=== PATIENT | male | born 1950 | race Caucasian/White ===

== ENCOUNTER → 2020-04-09 | Day surgery (SDC) | payer MEDICARE ==
[2020-04-04 11:21] VITALS: BMI 23.6
--- NOTE | 2020-04-08 22:33 | P.HPIHPCON ---
History of Present Illness H&P Date: 04/09/20 Chief Complaint: bladder cancer Mr Danni is 69 yo male with hx of HG T1 bladder cancer S/P BCG at [facility]. He had cystoscopy done in the office which showed evidence of recurrence of large bladder tumor. I discussed with him and his guardian given the evidence of recurrence I recommend her undergoes TURBT. I discussed with him and his guardian he will need to undergo upper tract evaluation to with bilateral reterograde pyelogram. I discussed the risk of bleeding, infection and bladder perforation. They understood all risk and agreed to proceed with TURBT and Bilateral reterograde pyelogram Consent for Procedure: I have explained the operation/procedure to the patient, including the risks, benefits, side effects, alternative therapies (including not receiving the proposed treatment or service), the likelihood of the patient achieving his/her goals, and potential recuperation problems for the procedure/sedation/analgesia, as well as any blood products, if indicated. I also explained to the patient the risks, benefits and side effects of the alternatives, as well as the risks related to not receiving the proposed procedure, care, treatment, or services. Past Medical History Past Medical History: Asthma, Hypertension Additional Past Medical History / Comment(s): bladder mass, legally impaired person-legal Guardian stated "unsure if had bladder or colon CA 15-20 yrs ago-no known tx" History of Any Multi-Drug Resistant Organisms: None Reported Additional Past Surgical History / Comment(s): states "not sure wihat surgeries have been done but has had anesthesia without problems" Past Anesthesia/Blood Transfusion Reactions: No Reported Reaction Additional Past Anesthesia/Blood Transfusion Reaction / Comment(s): unknown hx blood transfusion,no known family hx of problems. Smoking Status: Former smoker - Past Family History Mother Family Medical History: No Reported History Medications and Allergies Home Medications Medication Instructions Recorded Confirmed Type Cyclobenzaprine HCl 5 mg PO TID PRN 04/04/20 04/04/20 History amLODIPine [Norvasc] 10 mg PO QAM 04/04/20 04/04/20 History lisinopriL 40 mg PO QAM 04/04/20 04/04/20 History Allergies Allergy/AdvReac Type Severity Reaction Status Date / Time Penicillins Allergy Unknown Verified 04/04/20 10:40 Surgical - Exam - General well developed, well nourished, no distress - Respiratory normal expansion, normal respiratory effort - Abdomen Abdomen: soft, non tender - Psychiatric oriented to time, oriented to person, oriented to place Assessment and Plan Assessment: 69 yo male with hx of HG T1 bladder cancer, with evidence of recurrence - OR for TURBT and bilateral RPG
[~2020-04-09] MED LIST: CIPROFLOXACIN/DEXTROSE PMX 400 MG in DEXTROSE/WATER 1 200ML.BAG IVPB ONE; DEXAMETHASONE SOD PHOSPHATE 10 MG/ML 1 ML VIAL IV ONE; LACTATED RINGERS 1,000 ML IV ONE; LACTATED RINGERS 1,000 ML IV SCH; LIDOCAINE 1% (10MG/ML) FOR IV START INTRADERMA ONE; ONDANSETRON 4 MG/2 ML VIAL IVP ONE; ONDANSETRON 4 MG/2 ML VIAL ONE
[2020-04-09 13:21] VITALS: BP 154/81; PULSE 86; RESP 17; TEMP 97
== END ==
LOC: OR 12:37 → EEVIPCON 13:00
PROVIDERS: ATTEND Urology
DX: C67.9 Malignant neoplasm of bladder, unspecified (principal); Z53.8 Procedure and treatment not carried out for other reasons; J45.909 Unspecified asthma, uncomplicated; I10 Essential (primary) hypertension; Z98.890 Other specified postprocedural states; Z87.891 Personal history of nicotine dependence; Z79.899 Other long term (current) drug therapy; Z88.0 Allergy status to penicillin
CPT/HCPCS: 84132; J1100; J2405

== ENCOUNTER → 2020-09-21 | Outpatient (CLI) | payer MEDICARE ==
--- NOTE | 2020-09-21 11:16 | CT ---
EXAMINATION TYPE: CT ChestAbdPelvis wo con DATE OF EXAM: 09/21/2020 COMPARISON: NONE HISTORY: Stomach pains, neoplasm of bladder Vogel. CT DLP: 406.4 mGycm. Automated Exposure Control for Dose Reduction was Utilized. TECHNIQUE: CT scan of the thorax, abdomen and pelvis is performed without or lower IV contrast. FINDINGS: LUNGS: Suspicious scattered small pulmonary nodules bilaterally. For reference roughly 6 nodules note d bilaterally axial image 42. For reference anterior 6 x 5 mm nodule noted. There are approximately 5 right sided small nodules right upper lung axial image 10. No pleural effusion or pneumothorax seen bilaterally. MEDIASTINUM: There are no greater than 1 cm hilar or mediastinal lymph nodes. No pericardial effusi on is seen. Ectatic ascending aorta measuring up to 3.6 cm diameter axial image 25. Severe three-ves davide coronary artery calcification, correlate clinically for additional cardiac risk factors. Abnormal adenopathy paraesophageal region distally, largest lymph node at diaphragmatic hiatus 1.2 x 1.2 cm s egment 45. OTHER: Bilateral subareolar gynecomastia. LIVER/GB: Heterogeneous hypodense masses right liver consistent with hepatic metastatic disease. For reference anterior right hepatic lesion on axial image 47 measures 6.2 cm long axis. For reference po sterior right hepatic lesion same image measures 5.4 cm long axis. Lesion left hepatic lobe inferiorl y lateral segment measures 3.8 cm long axis axial image 55. Somewhat contracted gallbladder with mild surrounding fluid, given patient's symptoms of epigastric pain further evaluation to acute cholecyst itis advised. PANCREAS: No significant abnormality is seen. SPLEEN: No significant abnormality is seen. ADRENALS: No significant abnormality is seen. KIDNEYS: [id number] right-sided hydronephrosis. Finding related to abnormal right sided bladd er wall mass or neoplasm blocking UVJ. Tumor extension to superior bladder wall noted. BOWEL: Normal-appearing appendix from cecum incidentally seen.. GENITAL ORGANS: No gross abnormality seen. LYMPH NODES: There is abnormal mass suspected adenopathy 3.2 x 2.3 cm gastrohepatic level axial image 52 anterior to the pancreas. Poor fat plane separation of the pancreaticoduodenal groove, small lymp h nodes at this level suspected. Abnormal right external iliac chain mass or adenopathy measuring 2.7 x 2.1 cm axial image 93. OSSEOUS STRUCTURES: Moderate to severe disc space narrowing with endplate sclerosis L5-S1 level. Grad e 1 anterolisthesis L4 on S1. Facet arthropathy lower lumbar levels. Moderate narrowing and spurring both hip joints. OTHER: Low dense 2.8 cm lesion anterior left thigh level could reflect bursal fluid related to left h ip joint extending anteriorly superiorly versus other etiology, correlate clinically. Large right scr otal fluid collection or hydrocele. Moderate calcified plaque of the infrarenal abdominal aorta exten ding into iliac branch vessels. IMPRESSION: 1. Mild to moderate inflammatory change surrounding the gallbladder, in patient with epigastric pain, acute cholecystitis needs to be considered. Follow-up advised based on clinical correlation. 2. Known bladder mass or neoplasm causing severe obstructive right-sided hydronephrosis. There is met astatic adenopathy in the lower thorax and abdomen along with right iliac chain region. Hepatic metas tatic disease is present. Nonspecific pulmonary nodules favor hematogenous pulmonary metastatic disea se spread. Ordering physician made aware of results via perfect serve at time of dictation.
== END ==
LOC: RADCTMAIN 10:05
PROVIDERS: ATTEND Urology
DX: C78.7 Secondary malignant neoplasm of liver and intrahepatic bile duct (principal); C77.8 Secondary and unspecified malignant neoplasm of lymph nodes of multiple regions; R91.8 Other nonspecific abnormal finding of lung field; C67.9 Malignant neoplasm of bladder, unspecified; N13.30 Unspecified hydronephrosis
CPT/HCPCS: 71250; 74176

== ENCOUNTER 2020-10-11 09:04 | Day surgery (SDC) | payer MEDICARE ==
[2020-10-11 09:47] VITALS: RESP 16; TEMP 97.8
[2020-10-11 09:50] LABS: Mean Platelet Volume 9.5; Platelet Count 361 k/uL (150-450)
[2020-10-11 09:58] LABS: Prothrombin Time 10.3 sec (9.0-12.0)
[2020-10-11] MEDS ORDERED: ALPRAZolam 0.25 MG TAB PO STA (09:59)
[2020-10-11] MEDS ORDERED: HYDROmorphone 0.5 MG/0.5 ML SYRINGE IVP STA (10:23)
--- NOTE | 2020-10-11 12:26 | CT ---
EXAMINATION TYPE: CT biopsy liver DATE OF EXAM: 10/11/2020 COMPARISON: NONE HISTORY: Left lobe liver mass CT DLP: 876mGycm The procedure was explained to the patient. The risks, complications, benefits, and alternatives wer e discussed and any questions were answered. Informed consent was obtained. Patient was placed supi ne on the CT table and prepped and draped in the usual sterile fashion. All elements of maximal barrier and sterile technique utilized. Utilizing CT guidance, an 18 gauge core biopsy needle access into the left lobe of the liver was ach ieved and a single 18 gauge core sample was obtained. The patient was stable throughout the procedur e and remained stable upon discharge. IMPRESSION: 1. Successful 18 gauge core biopsy of the liver.
--- NOTE | 2020-10-11 13:57 | US ---
EXAMINATION TYPE: US venous doppler duplex LE DATE OF EXAM: 10/11/2020 1:43 PM COMPARISON: NONE CLINICAL HISTORY: R22.42 Swelling Left lower limb.. LEft calf swelling per patient. SIDE PERFORMED: Bilateral TECHNIQUE: The lower extremity deep venous system is examined utilizing real time linear array sonog gucci with graded compression, doppler sonography and color-flow sonography. VESSELS IMAGED: Common Femoral Vein Deep Femoral Vein Greater Saphenous Vein * Femoral Vein Popliteal Vein Small Saphenous Vein * Proximal Calf Veins (* superficial vessels) Right Leg: Negative for DVT Left Leg: Negative for DVT IMPRESSION: Grayscale, color doppler, spectral doppler imaging performed of the deep veins of the lo wer extremities. There is normal flow, compressibility, vascular waveforms.
[2020-10-11 14:37] VITALS: BP 152/79
[2020-10-11] MEDS ORDERED: ACETAMINOPHEN TAB 325 MG TAB ONE (14:53)
[2020-10-11] MEDS ORDERED: ACETAMINOPHEN TAB 325 MG TAB PO STA (14:55)
[2020-10-11 15:41] VITALS: PULSE 74
== END 2020-10-11 16:47 | disposition home or self-care (01) ==
LOC: RADPROMAIN 09:04
PROVIDERS: ATTEND Internal Medicine Hematology & Oncology
DX: R16.0 Hepatomegaly, not elsewhere classified (principal); K76.89 Other specified diseases of liver; M79.89 Other specified soft tissue disorders; Z85.038 Personal history of other malignant neoplasm of large intestine; Z85.51 Personal history of malignant neoplasm of bladder
CPT/HCPCS: 85049; 85610; 88307; 36415; 93970; 47000; 77012; J1170

== ENCOUNTER → 2020-10-11 | Outpatient (CLI) | payer MEDICARE | END | disposition home or self-care (01) | LOC: RADUSWWP 12:47 | PROVIDERS: ATTEND Internal Medicine Hematology & Oncology | DX: Z53.9 Procedure and treatment not carried out, unspecified reason (principal) ==

== ENCOUNTER → 2021-01-10 | Outpatient (CLI) | payer MEDICARE ==
[2021-01-10 14:28] LABS: Albumin 3.7 g/dL (3.5-5.0); Calcium 9.3 mg/dL (8.4-10.2); Potassium 4.7 mmol/L (3.5-5.1); Total Bilirubin 0.2 mg/dL (0.2-1.3); Total Protein 7.2 g/dL (6.3-8.2)
--- NOTE | 2021-01-10 16:08 | CT ---
EXAMINATION TYPE: CT ChestAbdPelvis w con DATE OF EXAM: 01/10/2021 COMPARISON: 09/21/2020 HISTORY: 70-year-old male C6 7.2, bladder CA TECHNIQUE: Contiguous axial scanning of the chest, abdomen, and pelvis performed with IV Contrast, pa tient injected with 80 mL of Isovue 300. Delayed images through the kidneys were obtained. Coronal/sa gittal reconstructions performed. CT DLP: 562 mGycm Automated exposure control for dose reduction was used. FINDINGS: CHEST: Intramural median sternotomy and surgical clips along the anterior pericardium. Retained epicardial p acer lead. Substernal pericardial thickening measuring 4.7 x 2.9 cm AP postsurgical, new from . Heart normal size. Mildly aneurysmal aortic root at 4.0 cm. Conventional branching anatomy. Mild atherosclerotic arch ca lcifications. Prominent but nonenlarged 8 mm lower right paratracheal lymph node. Additional scattered small nonenl arged mediastinal lymph nodes are noted. Some lower right paraesophageal lymph nodes stable measuring up to 1.4 cm. Numerous bilateral pulmonary nodules are redemonstrated, the majority of which measure 5 mm or smalle r. No significant change is identified. No consolidation or pleural effusion. New volume loss with patchy atelectasis at the left base and no w asymmetric elevation left hemidiaphragm. ABDOMEN: Mild circumferential wall thickening distal esophagus. Correlate for any symptoms of esophagitis. Tin y hiatal hernia also noted. Redemonstrated breast 8 hypodense hepatic lesions. These also show decreasing in size, largest measur ing 4.1 cm anterior right liver lobe versus 6.2 cm, previously. Another mass in the mid liver measure s 3.3 cm versus 5.4 cm, previously. In the inferior left liver lobe measures 2.7 cm versus 3.6 cm, pr eviously. Gallbladder is collapsed. Adrenal glands, left kidney, spleen, and pancreas show no gross abnormal mobility. Mild right-sided pelvocaliectasis is unchanged. A couple nodules measuring up to 8 mm in the superior left perinephric fat are unchanged. Gastrohepatic ligament lymph nodes smaller at 1.3 cm versus 1.5 cm, previously. Abnormal encasing sof t tissue in the kong hepatis currently 3.9 cm versus up to 5.4 cm, previously. No dilated small bowel, free fluid, free air. Some left periaortic lymph nodes in the retroperitoneum measure up to 8 mm versus 1.1 cm, previously. Mild generalized anasarca change with hazy edema throughout the intra-abdominal fat and mild within t he subcutaneous adipose. Moderate atherosclerotic calcifications infrarenal abdominal aorta and iliac arteries. Oral contrast has progressed into the proximal sigmoid colon. There is moderate to large stool burden . No pericolonic inflammatory change. PELVIS: Irregular mural mass along the right lateral bladder wall and right bladder base redemonstrated. Thic kening measures up to 4.5 x 3.1 cm towards the dome of the bladder versus 5.0 x 3.6 cm, previously. L ateral wall thickening measures up to 1.2 cm versus about 1.9 cm, previously. Stable hypodense lesion involving the distal left iliopsoas muscle along the anterior aspect of the l eft hip measuring 2.6 cm, unchanged. Unclear if this represents an intramuscular metastasis or disten tion of the iliopsoas bursa. Right external iliac chain lymphadenopathy has resolved. Persistent large right-sided hydrocele. BONES: Degenerative changes right SI joint and left greater than right hips. Advanced hypertrophic facet art hropathy mid to lower lumbar spine with grade 1, nearly grade 2 anterolisthesis L4-L5. [facility] within th e lower thoracic spine. IMPRESSION: 1. PARTIAL TREATMENT RESPONSE. MULTIPLE HEPATIC METASTASES REMAIN BUT ALL SHOW DECREASE IN SIZE (LARG EST MEASURING 4.1 CM VERSUS 6.2 CM, PREVIOUSLY). 2. MULTIPLE BILATERAL PULMONARY NODULES MEASURING UP TO 5 MM ARE LARGELY UNCHANGED. 3. SOME LOWER RIGHT PARAESOPHAGEAL AND LEFT PARA-AORTIC RETROPERITONEAL LYMPH NODES ARE STABLE. HOWEV ER, CONGLOMERATE KONG HEPATIC LYMPHADENOPATHY SHOWS DECREASE IN SIZE (3.9 CM NOW VERSUS 5.4 CM, PREV IOUSLY). RIGHT EXTERNAL ILIAC CHAIN LYMPHADENOPATHY HAS RESOLVED. 4. RESIDUAL PROMINENT MURAL BASED MASS ALONG THE RIGHT LATERAL BLADDER WALL. OVERALL THICKNESS HAS DE CREASED. 5. INTERVAL MEDIAN STERNOTOMY. SUBSTERNAL ANTERIOR MEDIASTINAL THICKENING MAY BE POSTSURGICAL. METAST ATIC DISEASE IS CONSIDERED LESS LIKELY GIVEN THE OVERALL FAVORABLE RESPONSE MENTIONED ABOVE. 6. SIMILAR MILD RIGHT-SIDED HYDRONEPHROSIS. PERSISTENT LARGE RIGHT SCROTAL HYDROCELE. LOW-DENSITY LES ION WITHIN THE LOWER LEFT ILIOPSOAS MUSCLE IS STABLE AT 2.6 CM AND COULD REPRESENT A SOFT TISSUE DEPO SIT OR DISTENTION OF THE ILIOPSOAS BURSA.
== END | disposition home or self-care (01) ==
LOC: RADCTMAIN 12:40
PROVIDERS: ATTEND Internal Medicine Hematology & Oncology
DX: C67.2 Malignant neoplasm of lateral wall of bladder (principal); C78.7 Secondary malignant neoplasm of liver and intrahepatic bile duct; R91.8 Other nonspecific abnormal finding of lung field; N13.30 Unspecified hydronephrosis; N43.3 Hydrocele, unspecified
CPT/HCPCS: 80053; 71260; 74177; Q9967

== ENCOUNTER 2021-03-15 10:08 | Inpatient (IN) | payer MEDICARE ==
[2021-03-15] MEDS ORDERED: SODIUM CHLORIDE 0.9% 1,000 ML IV STA ×2 (10:24)
[2021-03-15 11:37] LABS: Anisocytosis Slight; HGB 9.3 gm/dL (13.0-17.5); MCH 29.1 pg (25.0-35.0); MCHC 33.1 g/dL (31.0-37.0); Mean Platelet Volume 9.6; RBC 3.18 m/uL (4.30-5.90); RDW 16.1 % (11.5-15.5)
[2021-03-15 11:39] LABS: Albumin 2.7 g/dL (3.5-5.0); Calcium 7.7 mg/dL (8.4-10.2); Magnesium 2.5 mg/dL (1.6-2.3); Potassium 3.6 mmol/L (3.5-5.1); Total Bilirubin 0.7 mg/dL (0.2-1.3); Total Protein 5.9 g/dL (6.3-8.2)
[2021-03-15 11:47] LABS: WBC 1.4 k/uL (3.8-10.6)
--- NOTE | 2021-03-15 12:04 | ED ---
General Adult HPI - General Chief complaint: Nausea/Vomiting/Diarrhea Stated complaint: Unable to eat, Diarrhea Time Seen by Provider: 03/15/21 10:14 Source: patient, RN notes reviewed, Caregiver Mode of arrival: wheelchair Limitations: no limitations - History of Present Illness Initial comments: This is a 70-year-old male presents emergency from with caregiver chief complaint of increasing weakness sent over from cancer Center. Patient is currently receiving infusions for bladder cancer with metastasis. Patient's having increasing symptoms including nausea, vomiting, diarrhea. Patient primarily diarrhea unable to eat much at this time. Patient complains abdominal pain which is been ongoing had a CAT scan recently. Patient has had no reported fever. Patient was sent over for probable admission for IV fluids. - Related Data Home Medications Medication Instructions Recorded Confirmed amLODIPine [Norvasc] 10 mg PO DAILY 04/04/20 03/15/21 Atorvastatin [Lipitor] 80 mg PO DAILY 02/01/21 03/15/21 Ferrous Sulfate [Iron] 325 mg PO DAILY 02/01/21 03/15/21 Pantoprazole [Protonix] 40 mg PO DAILY 02/01/21 03/15/21 Pvtvs-Q-Kzfvkngshbcxz [Beano] 150 unit PO TID PRN 03/15/21 03/15/21 Aspirin EC [Ecotrin Low Dose] 81 mg PO DAILY 03/15/21 03/15/21 Diphenox-Atrop 2.5-0.025 mg 2 tab PO QID 03/15/21 03/15/21 [Lomotil] Megestrol [Megace] 800 mg PO DAILY 03/15/21 03/15/21 Ondansetron HCl [Zofran] 4 mg PO Q6H PRN 03/15/21 03/15/21 Allergies Allergy/AdvReac Type Severity Reaction Status Date / Time Penicillins Allergy Unknown Verified 03/15/21 12:14 Review of Systems ROS Statement: Those systems with pertinent positive or pertinent negative responses have been documented in the HPI. ROS Other: All systems not noted in ROS Statement are negative. Past Medical History Past Medical History: Asthma, Cancer, Hypertension Additional Past Medical History / Comment(s): BLADDER CANCER. History of Any Multi-Drug Resistant Organisms: None Reported Additional Past Surgical History / Comment(s): states "not sure wihat surgeries have been done but has had anesthesia without problems" Past Anesthesia/Blood Transfusion Reactions: No Reported Reaction Additional Past Anesthesia/Blood Transfusion Reaction / Comment(s): unknown hx blood transfusion,no known family hx of problems. Past Psychological History: No Psychological Hx Reported Smoking Status: Former smoker Past Alcohol Use History: None Reported Past Drug Use History: None Reported - Past Family History Mother Family Medical History: No Reported History General Exam Limitations: no limitations General appearance: alert, in no apparent distress Head exam: Present: atraumatic, normocephalic, normal inspection Neck exam: Present: normal inspection. Absent: tenderness, meningismus, lymphad enopathy Respiratory exam: Present: normal lung sounds bilaterally. Absent: respiratory distress, wheezes, rales, rhonchi, stridor Cardiovascular Exam: Present: regular rate, normal rhythm, normal heart sounds. Absent: systolic murmur, diastolic murmur, rubs, gallop, clicks GI/Abdominal exam: Present: soft, tenderness, normal bowel sounds. Absent: distended, guarding, rebound, rigid Neurological exam: Present: alert Skin exam: Present: warm, dry, intact, normal color. Absent: rash Course Vital Signs 03/15/21 03/15/21 03/15/21 10:09 11:16 11:30 Temperature 97.8 F Pulse Rate 92 89 82 Respiratory 22 18 18 Rate Blood Pressure 91/61 130/64 130/64 O2 Sat by Pulse 100 95 95 Oximetry 03/15/21 12:00 Temperature Pulse Rate 87 Respiratory 18 Rate Blood Pressure 133/63 O2 Sat by Pulse 96 Oximetry Medical Decision Making - Medical Decision Making 70-year-old presented for dehydration. Patient found to be acutely dehydrated sodium 125 chloride 93 patient has metabolic acidosis. Patient does have thrombocytopenia which is new. Case discussed with some physician to address the eat. Patient be admitted with consult to oncology. - Lab Data Result diagrams: 03/15/21 10:57 03/15/21 10:57 Lab Results 03/15/21 03/15/21 03/15/21 Range/Units 10:57 10:57 10:57 WBC 1.4 L* (3.8-10.6) k/uL RBC 3.18 L (4.30-5.90) m/uL Hgb 9.3 L (13.0-17.5) gm/dL Hct 28.0 L (39.0-53.0) % MCV 88.0 (80.0-100.0) fL MCH 29.1 (25.0-35.0) pg MCHC 33.1 (31.0-37.0) g/dL RDW 16.1 H (11.5-15.5) % Plt Count 72 L D (150-450) k/uL MPV 9.6 Neutrophils % (Manual) 53 % Band Neuts % (Manual) 4 % Lymphocytes % (Manual) 29 % Monocytes % (Manual) 14 % Neutrophils # (Manual) 0.70 L (1.3-7.7) k/uL Lymphocytes # (Manual) 0.41 L (1.0-4.8) k/uL Monocytes # (Manual) 0.20 (0-1.0) k/uL Nucleated RBCs 0 (0-0) /100 WBC Manual Slide Review Performed Anisocytosis Slight Sodium 125 L (137-145) mmol/L Potassium 3.6 (3.5-5.1) mmol/L Chloride 93 L (98-107) mmol/L Carbon Dioxide 21 L (22-30) mmol/L Anion Gap 11 mmol/L BUN 42 H (9-20) mg/dL Creatinine 1.43 H (0.66-1.25) mg/dL Est GFR (CKD-EPI)AfAm 57 (>60 ml/min/1.73 sqM) Est GFR (CKD-EPI)NonAf 49 (>60 ml/min/1.73 sqM) Glucose 83 (74-99) mg/dL Plasma Lactic Acid Schuyler 1.7 (0.7-2.0) mmol/L Calcium 7.7 L (8.4-10.2) mg/dL Magnesium 2.5 H (1.6-2.3) mg/dL Total Bilirubin 0.7 (0.2-1.3) mg/dL AST 84 H (17-59) U/L ALT 46 (4-49) U/L Alkaline Phosphatase 119 (38-126) U/L Troponin I (0.000-0.034) ng/mL Total Protein 5.9 L (6.3-8.2) g/dL Albumin 2.7 L (3.5-5.0) g/dL Amylase 81 (30-110) U/L Lipase 138 (23-300) U/L 03/15/21 Range/Units 10:57 WBC (3.8-10.6) k/uL RBC (4.30-5.90) m/uL Hgb (13.0-17.5) gm/dL Hct (39.0-53.0) % MCV (80.0-100.0) fL MCH (25.0-35.0) pg MCHC (31.0-37.0) g/dL RDW (11.5-15.5) % Plt Count (150-450) k/uL MPV Neutrophils % (Manual) % Band Neuts % (Manual) % Lymphocytes % (Manual) % Monocytes % (Manual) % Neutrophils # (Manual) (1.3-7.7) k/uL Lymphocytes # (Manual) (1.0-4.8) k/uL Monocytes # (Manual) (0-1.0) k/uL Nucleated RBCs (0-0) /100 WBC Manual Slide Review Anisocytosis Sodium (137-145) mmol/L Potassium (3.5-5.1) mmol/L Chloride (98-107) mmol/L Carbon Dioxide (22-30) mmol/L Anion Gap mmol/L BUN (9-20) mg/dL Creatinine (0.66-1.25) mg/dL Est GFR (CKD-EPI)AfAm (>60 ml/min/1.73 sqM) Est GFR (CKD-EPI)NonAf (>60 ml/min/1.73 sqM) Glucose (74-99) mg/dL Plasma Lactic Acid Schuyler (0.7-2.0) mmol/L Calcium (8.4-10.2) mg/dL Magnesium (1.6-2.3) mg/dL Total Bilirubin (0.2-1.3) mg/dL AST (17-59) U/L ALT (4-49) U/L Alkaline Phosphatase (38-126) U/L Troponin I 0.014 (0.000-0.034) ng/mL Total Protein (6.3-8.2) g/dL Albumin (3.5-5.0) g/dL Amylase (30-110) U/L Lipase (23-300) U/L Disposition Clinical Impression: Pancytopenia, Dehydration, Metastasis from bladder cancer, Metabolic acidosis Disposition: ADMITTED IP TO THIS [facility] Condition: Fair Referrals: None,Stated [Primary Care Provider] - 1-2 days
[2021-03-15 12:22] LABS: Band Neutrophils % 4 %; Lymphocytes # (M) 0.41 k/uL (1.0-4.8); Neutrophils % (M) 53 %; Nucleated Red Blood Cells 0 /100 WBC (0-0); Total Cells Counted 100
[2021-03-15 12:23] LABS: Platelet Count 72 k/uL (150-450)
[2021-03-15] MEDS ORDERED: ONDANSETRON 4 MG/2 ML VIAL IVP PRN ×2 (13:10→13:21)
[2021-03-15] MEDS ORDERED: NALOXONE 0.4 MG/ML 1 ML VIAL IV PRN (13:10)
--- NOTE | 2021-03-15 13:26 | P.HPIM ---
History of Present Illness H&P Date: 03/15/21 This is a 70-year-old mentally impaired male with known history of metastatic bladder cancer that resulted to the emergency room sent from the cancer center secondary to persistent diarrhea and vomiting attributed to chemotherapy. Patient is unable to provide any significant history and his caregiver was not at bedside at the time of my evaluation in the emergency room. History was obtained by chart review and ER staff report. Apparently patient has been having persistent diarrhea with intermittent vomiting and he was at the cancer Center today scheduled for chemotherapy and was sent to the ER for further management of his dehydration. Patient is awake and alert. He does not have any complaints. He told me that he was having diarrhea and vomited once earlier. He denies any abdominal pain otherwise. No fevers or chills. Review of Systems Review of system: 14 points review of systems were obtained and were negative except to what were mentioned in the HPI. Past Medical History Past Medical History: Asthma, Cancer, Hypertension Additional Past Medical History / Comment(s): BLADDER CANCER. History of Any Multi-Drug Resistant Organisms: None Reported Additional Past Surgical History / Comment(s): states "not sure wihat surgeries have been done but has had anesthesia without problems" Past Anesthesia/Blood Transfusion Reactions: No Reported Reaction Additional Past Anesthesia/Blood Transfusion Reaction / Comment(s): unknown hx blood transfusion,no known family hx of problems. Past Psychological History: No Psychological Hx Reported Smoking Status: Former smoker Past Alcohol Use History: None Reported Past Drug Use History: None Reported - Past Family History Mother Family Medical History: No Reported History Medications and Allergies Home Medications Medication Instructions Recorded Confirmed Type amLODIPine [Norvasc] 10 mg PO DAILY 04/04/20 03/15/21 History Atorvastatin [Lipitor] 80 mg PO DAILY 02/01/21 03/15/21 History Ferrous Sulfate [Iron] 325 mg PO DAILY 02/01/21 03/15/21 History Pantoprazole [Protonix] 40 mg PO DAILY 02/01/21 03/15/21 History Lijmp-R-Znqduusdwtkks [Beano] 150 unit PO TID PRN 03/15/21 03/15/21 History Aspirin EC [Ecotrin Low Dose] 81 mg PO DAILY 03/15/21 03/15/21 History Diphenox-Atrop 2.5-0.025 mg 2 tab PO QID 03/15/21 03/15/21 History [Lomotil] Megestrol [Megace] 800 mg PO DAILY 03/15/21 03/15/21 History Ondansetron HCl [Zofran] 4 mg PO Q6H PRN 03/15/21 03/15/21 History Allergies Allergy/AdvReac Type Severity Reaction Status Date / Time Penicillins Allergy Unknown Verified 03/15/21 12:14 Physical Exam Vitals: Vital Signs Temp Pulse Resp BP Pulse Ox 03/15/21 12:00 87 18 133/63 96 03/15/21 11:30 82 18 130/64 95 03/15/21 11:16 89 18 130/64 95 03/15/21 10:09 97.8 F 92 22 91/61 100 Intake and Output 03/14/21 03/15/21 03/15/21 22:59 06:59 14:59 Other: Weight 45.359 kg General: The patient is awake and alert, in no distress Eye: there is normal conjunctiva bilaterally. Neck: The neck is supple, there is no JVD. Cardiovascular: Normal S1-S2, no S3-S4, no murmurs. Respiratory: Lungs clear to auscultation bilaterally Gastrointestinal: Abdomen is soft, nontender Musculoskeletal: There is no pedal edema. Neurological:. Speech is normal. Skin: Skin is warm and dry Results CBC & Chem 7: 03/15/21 10:57 03/15/21 10:57 Labs: Abnormal Lab Results - Last 24 Hours (Table) 03/15/21 03/15/21 Range/Units 10:57 10:57 WBC 1.4 L* (3.8-10.6) k/uL RBC 3.18 L (4.30-5.90) m/uL Hgb 9.3 L (13.0-17.5) gm/dL Hct 28.0 L (39.0-53.0) % RDW 16.1 H (11.5-15.5) % Plt Count 72 L D (150-450) k/uL Neutrophils # (Manual) 0.70 L (1.3-7.7) k/uL Lymphocytes # (Manual) 0.41 L (1.0-4.8) k/uL Sodium 125 L (137-145) mmol/L Chloride 93 L (98-107) mmol/L Carbon Dioxide 21 L (22-30) mmol/L BUN 42 H (9-20) mg/dL Creatinine 1.43 H (0.66-1.25) mg/dL Calcium 7.7 L (8.4-10.2) mg/dL Magnesium 2.5 H (1.6-2.3) mg/dL AST 84 H (17-59) U/L Total Protein 5.9 L (6.3-8.2) g/dL Albumin 2.7 L (3.5-5.0) g/dL Assessment and Plan Assessment: 1. Chemo-induced diarrhea and vomiting 2. Hypovolemic hyponatremia 3. Dehydration 4. Metastatic bladder cancer with metastases to the liver and lungs on chemotherapy 5. Chemo-induced pancytopenia 6. CODE STATUS: Unable to clarify CODE STATUS with patient we will assume full code until further clarification Today, I reviewed his medication list and lab work results. Started on IV fluid hydration with normal saline at 139 per hour. We will avoid sodium ove rcorrection. Check BMP at 1900 and in the morning. Oncology consulted as well. We will continue supportive care otherwise. In control and anti-emetic as needed.
[2021-03-15] MEDS: SODIUM CHLORIDE 0.9% 1,000 ML IV SCH (13:47)
[2021-03-15 14:33] LABS: Appearance,Urine Cloudy (Clear); Bilirubin,Urine Negative (Negative); Blood,Urine Small (Negative); Color,Urine Yellow; Glucose,Urine (UA) Negative (Negative); Ketones,Urine Negative (Negative); Leukocyte Esterase,Urine Negative (Negative); Nitrite,Urine Negative (Negative); PH, Urine 5.5 (5.0-8.0); Protein,Urine 1+ (Negative); RBC,Urine 12 /hpf (0-5); Specific Gravity,Urine 1.013 (1.001-1.035); Squamous Epithelial Cell,Urine <1 /hpf (0-4); Urobilinogen,Urine <2.0 mg/dL (<2.0); WBC,Urine 3 /hpf (0-5)
[2021-03-15] MEDS ORDERED: ALPHA D GALACTOSIDASE 300 UNIT PO PRN (16:50)
[2021-03-15] MEDS: DIPHENOX-ATROP 2.5-0.025 MG 1 EACH TAB PO SCH ×2 (19:09→21:56)
[2021-03-15 19:37] LABS: Calcium 7.7 mg/dL (8.4-10.2); Potassium 3.4 mmol/L (3.5-5.1)
[2021-03-15] MEDS: ACETAMINOPHEN TAB 325 MG TAB PO PRN (21:56)
--- NOTE | 2021-03-15 23:57 | P.CONS ---
History of Present Illness - Reason for Consult Consult date: 03/15/21 Bladder Cancer Requesting physician: Francis Sun - History of Present Illness Antwon presented with Hematuria, Cytoscopy and biopsy by Dr Bragg in Apr 2020 revealed High-grade Urothelial carcinoma with muscle invasion. Staging CT Scan ordered, but not done till September 2020, since then he developed progressive weakness, anorexia , abdominal pain & weight loss. CT Scan unfortunatelly revealed pelvic & abdominal lymphadenopathy, lung & liver metastatic disease. He is very weak and lost 25-30 lbs in last 2-3 months, has epigastric abdominal pain, eats ceral in AM but has nausea with any form of meat. He smoked 1 PPD X 20 years, quit 15 years ago, denies ETOH. Stated having severe pain in am in both calfs when standing/walking 10/30/20: C/O abdominal pain, anorexia & weight loss. Completed Cycle # 1 of carboplatinum+Gemzar > well tolerated, no N/V. 01/10/21: Had NSTEMI > Cardiogenic shock > CABG ([place]) Cardiac rehab > recovered well. Denies any chest pain, SOB or abdominal pain. 02/01/21: Tolerating Chemotherapy well (3 cycles given so far). 02/28/21-Pt here with guardian for chemo f/u, per proxy lacks appetite, lost wt, has the "runs", cont getting weaker. Pt states his stomach "stout", has lots of "gas". Pt has been out of several meds as he has not establised with a PCP yet- PPI is one of them. No other c/o At last visit [employer] Reviewed med list with guardian. Encouraged him to get pt back on PPI (pt c/o bruning in stomach and gas) and use the beano. Use the lomotil f or diarrhea sparingly as treatment of the aformentioned may help pt eat better and help diarrhea. Prescribed 30 day supple of several meds pt is needing but won't be able to get until he has a PCP. He has completed 5 cycles of carboplatin and gemsar. He has not received growth factor to this date. He presents with WBC 1.4, SOdium level 125. He presents to ER with diarrhea and nausea and vomiting. Afebrile. Guardian speaks for patient who is unable to communicate baseline Review of Systems ROS unobtainable: due to mental status Past Medical History Past Medical History: Asthma, Cancer, Hypertension Additional Past Medical History / Comment(s): Patient has Alcohol Syndrome with cognitive impairment. Bladder Cancer with known liver and lung mets. History of Any Multi-Drug Resistant Organisms: None Reported Past Surgical History: No Surgical Hx Reported Additional Past Surgical History / Comment(s): . Past Anesthesia/Blood Transfusion Reactions: No Reported Reaction Additional Past Anesthesia/Blood Transfusion Reaction / Comm: No Known History of blood transfusions. Past Psychological History: No Psychological Hx Reported Additional Psychological History / Comment(s): Cognitive Impairment Smoking Status: Former smoker Past Alcohol Use History: None Reported Additional Past Alcohol Use History / Comment(s): quit smoking 20 years ago per caregiver. Past Drug Use History: None Reported - Past Family History Mother Family Medical History: No Reported History Additional Family Medical History / Comment(s): Alcoholic Father Family Medical History: Myocardial Infarction (MA) Medications and Allergies Home Medications Medication Instructions Recorded Confirmed Type amLODIPine [Norvasc] 10 mg PO DAILY 04/04/20 03/15/21 History Atorvastatin [Lipitor] 80 mg PO DAILY 02/01/21 03/15/21 History Ferrous Sulfate [Iron] 325 mg PO DAILY 02/01/21 03/15/21 History Pantoprazole [Protonix] 40 mg PO DAILY 02/01/21 03/15/21 History Phzju-F-Apvucrxitvlie [Beano] 150 unit PO TID PRN 03/15/21 03/15/21 History Aspirin EC [Ecotrin Low Dose] 81 mg PO DAILY 03/15/21 03/15/21 History Diphenox-Atrop 2.5-0.025 mg 2 tab PO QID 03/15/21 03/15/21 History [Lomotil] Megestrol [Megace] 800 mg PO DAILY 03/15/21 03/15/21 History Ondansetron HCl [Zofran] 4 mg PO Q6H PRN 03/15/21 03/15/21 History Allergies Allergy/AdvReac Type Severity Reaction Status Date / Time Penicillins Allergy Unknown Verified 03/15/21 12:14 Physical Exam Vitals: Vital Signs Temp Pulse Pulse Resp BP BP Pulse Ox 03/15/21 20:22 98.4 F 88 16 112/55 97 03/15/21 14:45 97.5 F L 85 17 120/66 95 03/15/21 13:55 97.8 F 82 18 130/78 92 L 03/15/21 12:00 87 18 133/63 96 03/15/21 11:30 82 18 130/64 95 03/15/21 11:16 89 18 130/64 95 03/15/21 10:09 97.8 F 92 22 91/61 100 Intake and Output 03/15/21 03/15/21 03/16/21 14:59 22:59 06:59 Other: Voiding Method Toilet Diaper Incontinent # Bowel Movements 1 Weight 45.359 kg - Constitutional General appearance: no acute distress - EENT Eyes: poor dentition ENT: NA/AT - Respiratory Respiratory: bilateral: diminished - Cardiovascular Rhythm: regularly irregular leg Peripheral Edema: bilateral: 1+ - Gastrointestinal General gastrointestinal: soft - Integumentary Integumentary: no pale - Neurologic unable to access - Musculoskeletal Musculoskeletal: generalized weakness - Psychiatric baseline Results CBC & Chem 7: 03/15/21 10:57 03/15/21 19:16 Labs: Abnormal Lab Results - Last 24 Hours (Table) 03/15/21 03/15/21 03/15/21 Range/Units 10:57 10:57 10:57 WBC 1.4 L* (3.8-10.6) k/uL RBC 3.18 L (4.30-5.90) m/uL Hgb 9.3 L (13.0-17.5) gm/dL Hct 28.0 L (39.0-53.0) % RDW 16.1 H (11.5-15.5) % Plt Count 72 L D (150-450) k/uL Neutrophils # (Manual) 0.70 L (1.3-7.7) k/uL Lymphocytes # (Manual) 0.41 L (1.0-4.8) k/uL Sodium 125 L (137-145) mmol/L Potassium (3.5-5.1) mmol/L Chloride 93 L (98-107) mmol/L Carbon Dioxide 21 L (22-30) mmol/L BUN 42 H (9-20) mg/dL Creatinine 1.43 H (0.66-1.25) mg/dL Calcium 7.7 L (8.4-10.2) mg/dL Magnesium 2.5 H (1.6-2.3) mg/dL AST 84 H (17-59) U/L Total Protein 5.9 L (6.3-8.2) g/dL Albumin 2.7 L (3.5-5.0) g/dL Urine Protein 1+ H (Negative) Urine Blood Small H (Negative) Urine RBC 12 H (0-5) /hpf 03/15/21 Range/Units 19:16 WBC (3.8-10.6) k/uL RBC (4.30-5.90) m/uL Hgb (13.0-17.5) gm/dL Hct (39.0-53.0) % RDW (11.5-15.5) % Plt Count (150-450) k/uL Neutrophils # (Manual) (1.3-7.7) k/uL Lymphocytes # (Manual) (1.0-4.8) k/uL Sodium 126 L (137-145) mmol/L Potassium 3.4 L (3.5-5.1) mmol/L Chloride 97 L (98-107) mmol/L Carbon Dioxide 19 L (22-30) mmol/L BUN 36 H (9-20) mg/dL Creatinine (0.66-1.25) mg/dL Calcium 7.7 L (8.4-10.2) mg/dL Magnesium (1.6-2.3) mg/dL AST (17-59) U/L Total Protein (6.3-8.2) g/dL Albumin (3.5-5.0) g/dL Urine Protein (Negative) Urine Blood (Negative) Urine RBC (0-5) /hpf Assessment and Plan (1) Diarrhea Current Visit: Yes Status: Acute Code(s): R19.7 - DIARRHEA, UNSPECIFIED SNOMED Code(s): 85269849 (2) Dehydration Current Visit: Yes Status: Acute Code(s): E86.0 - DEHYDRATION SNOMED Code(s): 45244294 (3) Metastasis from bladder cancer Current Visit: Yes Status: Acute Code(s): C79.9 - SECONDARY MALIGNANT NEOPLASM OF UNSPECIFIED SITE; C67.9 - MALIGNANT NEOPLASM OF BLADDER, UNSPECIFIED SNOMED Code(s): 494451281 (4) Pancytopenia Current Visit: Yes Status: Acute Code(s): D61.818 - OTHER PANCYTOPENIA SNO MED Code(s): 434588980 Plan: Obtain stool studies and utilize questran until infectious colitis is ruled out CBC in Am, if WBC still low may add growth factor. Supportive and symptom management Pancytopenia secondary to chemotherapy. Physician attest: I have completed the full history and physical and agree with above dictation, dictated as a ascribe
[2021-03-16] MEDS: SODIUM CHLORIDE 0.9% 1,000 ML IV SCH ×2 (02:55→16:45)
[2021-03-16 06:11] LABS: HCT 24.1 % (39.0-53.0); MCH 28.8 pg (25.0-35.0); MCHC 32.5 g/dL (31.0-37.0); MCV 88.5 fL (80.0-100.0); Mean Platelet Volume 10.4; RBC 2.72 m/uL (4.30-5.90); RDW 15.9 % (11.5-15.5)
[2021-03-16 06:23] LABS: HGB 7.8 gm/dL (13.0-17.5); Platelet Count 33 k/uL (150-450); WBC 0.8 k/uL (3.8-10.6)
[2021-03-16 06:37] LABS: ALT 38 U/L (4-49); AST 64 U/L (17-59); African American GFR (CKD) 76 (>60 ml/min/1.73 sqM); Albumin/Globulin Ratio 0.7; Alkaline Phosphatase 95 U/L (38-126); Anion Gap 7 mmol/L; Blood Urea Nitrogen 31 mg/dL (9-20); Calcium 7.2 mg/dL (8.4-10.2); Carbon Dioxide 19 mmol/L (22-30); Chloride 102 mmol/L (98-107); Globulin 2.8 g/dL; Glucose 70 mg/dL (74-99); Magnesium 2.2 mg/dL (1.6-2.3); Non-African American GFR(CKD) 65 (>60 ml/min/1.73 sqM); Potassium 2.9 mmol/L (3.5-5.1); Sodium 128 mmol/L (137-145); Total Bilirubin 0.5 mg/dL (0.2-1.3); Total Protein 4.8 g/dL (6.3-8.2)
[2021-03-16] MEDS ORDERED: ASPIRIN 81 MG PO SCH (09:00)
[2021-03-16] MEDS: ATORVASTATIN 80 MG TAB PO SCH (09:57)
[2021-03-16] MEDS: PANTOPRAZOLE 40 MG TABLET PO SCH (09:57)
[2021-03-16] MEDS: DIPHENOX-ATROP 2.5-0.025 MG 1 EACH TAB PO SCH ×4 (09:57→21:08)
[2021-03-16] MEDS: FERROUS SULFATE 325 MG TAB PO SCH (09:57)
[2021-03-16] MEDS: CHOLESTYRAMINE (WITH SUGAR) 4 GM PACKET PO SCH ×2 (09:57→17:38)
[2021-03-16] MEDS: MEGESTROL 400 MG/10 ML CUP PO SCH (09:57)
[2021-03-16 11:39] VITALS: BMI 18.8
--- NOTE | 2021-03-16 12:00 | P.PN ---
Subjective Progress Note Date: 03/16/21 Principal diagnosis: dehydration, urothelial carcinoma, on chemo In f/u today pt states he is hungry, epigastric discomfort is mild, still having diarrhea. Denies any other pain, SOB. Objective - Vital Signs Vital signs: Vital Signs Temp 98.0 F 03/16/21 04:33 Pulse 88 03/16/21 08:40 Resp 18 03/16/21 08:40 BP 109/69 03/16/21 04:33 Pulse Ox 94 L 03/16/21 04:33 Intake & Output 03/15/21 03/16/21 03/16/21 18:59 06:59 18:59 Intake Total 1500 Balance 1500 Weight 45.359 kg 45.359 kg Intake: Intake, IV Titration 900 Amount Sodium Chloride 0.9% 1, 900 000 ml @ 75 mls/hr IV . [id number] [facility] Rx#:[id number] Oral 600 Other: Voiding Method Toilet Toilet Diaper Diaper Diaper Incontinent Incontinent Incontinent # Voids 2 # Bowel Movements 1 4 - Constitutional General appearance: Present: cooperative, no acute distress, thin - EENT Eyes: Present: anicteric sclerae, EOMI ENT: Present: hearing grossly normal - Respiratory Respiratory: bilateral: CTA, diminished - Cardiovascular Rhythm: regular Heart sounds: normal: S1, S2 Abnormal Heart Sounds: Absent: systolic murmur, diastolic murmur, rub, S3 Gallop, S4 Gallop, click, other - Peripheral edema leg Peripheral Edema: bilateral: None - Gastrointestinal General gastrointestinal: Present: normal bowel sounds, soft - Musculoskeletal Musculoskeletal: Present: generalized weakness, strength equal bilaterally - Psychiatric Psychiatric Comment(s): Oriented to self and place - Labs CBC & Chem 7: 03/16/21 05:37 03/16/21 05:37 Labs: Abnormal Lab Results - Last 24 Hours (Table) 03/15/21 03/15/21 03/15/21 Range/Units 10:57 10:57 19:16 WBC (3.8-10.6) k/uL RBC (4.30-5.90) m/uL Hgb (13.0-17.5) gm/dL Hct (39.0-53.0) % RDW (11.5-15.5) % Plt Count 72 L D (150-450) k/uL Neutrophils # (Manual) 0.70 L (1.3-7.7) k/uL Lymphocytes # (Manual) 0.41 L (1.0-4.8) k/uL Sodium 126 L (137-145) mmol/L Potassium 3.4 L (3.5-5.1) mmol/L Chloride 97 L (98-107) mmol/L Carbon Dioxide 19 L (22-30) mmol/L BUN 36 H (9-20) mg/dL Glucose (74-99) mg/dL Osmolality (280-301) mosm/kg Calcium 7.7 L (8.4-10.2) mg/dL AST (17-59) U/L Total Protein (6.3-8.2) g/dL Albumin (3.5-5.0) g/dL Urine Protein 1+ H (Negative) Urine Blood Small H (Negative) Urine RBC 12 H (0-5) /hpf 03/16/21 03/16/21 Range/Units 05:37 05:37 WBC 0.8 L* (3.8-10.6) k/uL RBC 2.72 L (4.30-5.90) m/uL Hgb 7.8 L D (13.0-17.5) gm/dL Hct 24.1 L (39.0-53.0) % RDW 15.9 H (11.5-15.5) % Plt Count 33 L D (150-450) k/uL Neutrophils # (Manual) (1.3-7.7) k/uL Lymphocytes # (Manual) (1.0-4.8) k/uL Sodium 128 L (137-145) mmol/L Potassium 2.9 L (3.5-5.1) mmol/L Chloride (98-107) mmol/L Carbon Dioxide 19 L (22-30) mmol/L BUN 31 H (9-20) mg/dL Glucose 70 L (74-99) mg/dL Osmolality 269 L (280-301) mosm/kg Calcium 7.2 L (8.4-10.2) mg/dL AST 64 H (17-59) U/L Total Protein 4.8 L (6.3-8.2) g/dL Albumin 2.0 L (3.5-5.0) g/dL Urine Protein (Negative) Urine Blood (Negative) Urine RBC (0-5) /hpf Assessment and Plan (1) Dehydration Narrative/Plan: IV hydration Na+, BUN/Cr improving Current Visit: Yes Status: Acute Priority: High Code(s): E86.0 - DEHYDRATION SNOMED Code(s): 74482005 (2) Antineoplastic chemotherapy induced pancytopenia Narrative/Plan: GCSF started Transfuse for Hgb<7 unless symptomatic Transfuse for plt <10,000 unless symptomatic. No asa,anticoagulation, NSAIDs until plt > 50,000 CBC daily Current Visit: Yes Status: Acute Priority: High Code(s): D61.810 - ANTINEOPLASTIC CHEMOTHERAPY INDUCED PANCYTOPENIA; T45.1X5A - ADVERSE EFFECT OF ANTINEOPLASTIC AND IMMUNOSUP DRUGS, INIT SNOMED Code(s): 833492802363436 (3) Diarrhea Narrative/Plan: 4 stool this AM. Stool studies still pending. Medications for treatment of diarrhea ordered Current Visit: Yes Status: Acute Priority: High Code(s): R19.7 - DIARRHEA, UNSPECIFIED SNOMED Code(s): 64040707 (4) Hyponatremia Narrative/Plan: Improving with NS hydration Current Visit: Yes Status: Acute Priority: Medium Code(s): E87.1 - HYPO- OSMOLALITY AND HYPONATREMIA SNOMED Code(s): 74205436 (5) Metastasis from bladder cancer Narrative/Plan: Pt was due for cycle 5 day 8. This has been held. Pt has had a good response to treatment. Plan was to complete 6 cycles. Will see how he does after recovery from his current condition. F/U in ofc prior to next treatment Current Visit: Yes Status: Acute Priority: High Code(s): C79.9 - SECONDARY MALIGNANT NEOPLASM OF UNSPECIFIED SITE; C67.9 - MALIGNANT NEOPLASM OF BLADDER, UNSPECIFIED SNOMED Code(s): 876216388
--- NOTE | 2021-03-16 14:37 | P.PN ---
Subjective Progress Note Date: 03/16/21 Patient is doing better today. He still having fairly frequent stools. Denies abdominal pain. Objective - Vital Signs Vital signs: Vital Signs Temp 98.4 F 03/16/21 12:37 Pulse 77 03/16/21 12:37 Resp 17 03/16/21 12:37 BP 112/63 03/16/21 12:37 Pulse Ox 96 03/16/21 12:37 Intake & Output 03/15/21 03/16/21 03/16/21 18:59 06:59 18:59 Intake Total 1500 Balance 1500 Weight 45.359 kg 45.359 kg Intake: Intake, IV Titration 900 Amount Sodium Chloride 0.9% 1, 900 000 ml @ 75 mls/hr IV . [id number] [facility] Rx#:[id number] Oral 600 Other: Voiding Method Toilet Toilet Diaper Diaper Diaper Incontinent Incontinent Incontinent # Voids 2 # Bowel Movements 1 4 - Exam General: The patient is awake and alert, in no distress Eye: there is normal conjunctiva bilaterally. Neck: The neck is supple, there is no JVD. Cardiovascular: Normal S1-S2, no S3-S4, no murmurs. Respiratory: Lungs clear to auscultation bilaterally Gastrointestinal: Abdomen is soft, nontender Musculoskeletal: There is no pedal edema. Neurological:. Speech is normal. Skin: Skin is warm and dry - Labs CBC & Chem 7: 03/16/21 05:37 03/16/21 05:37 Labs: Abnormal Lab Results - Last 24 Hours (Table) 03/15/21 03/16/21 03/16/21 Range/Units 19:16 05:37 05:37 WBC 0.8 L* (3.8-10.6) k/uL RBC 2.72 L (4.30-5.90) m/uL Hgb 7.8 L D (13.0-17.5) gm/dL Hct 24.1 L (39.0-53.0) % RDW 15.9 H (11.5-15.5) % Plt Count 33 L D (150-450) k/uL Sodium 126 L 128 L (137-145) mmol/L Potassium 3.4 L 2.9 L (3.5-5.1) mmol/L Chloride 97 L (98-107) mmol/L Carbon Dioxide 19 L 19 L (22-30) mmol/L BUN 36 H 31 H (9-20) mg/dL Glucose 70 L (74-99) mg/dL Osmolality 269 L (280-301) mosm/kg Calcium 7.7 L 7.2 L (8.4-10.2) mg/dL AST 64 H (17-59) U/L Total Protein 4.8 L (6.3-8.2) g/dL Albumin 2.0 L (3.5-5.0) g/dL Assessment and Plan Assessment: 1. Chemo-induced diarrhea and vomiting, stool studies pending 2. Hypovolemic hyponatremia 3. Dehydration 4. Metastatic bladder cancer with metastases to the liver and lungs on chemotherapy 5. Chemo-induced pancytopenia 6. CODE STATUS: Unable to clarify CODE STATUS with patient we will assume full code until further clarification Today, I reviewed his medication list and lab work results. Change IV fluid to normal saline at 75 mL per hour. We will avoid sodium overcorrection. Oncology consulted as well. Started on Zarxio. We will continue supportive care otherwise.
[2021-03-16] MEDS ORDERED: Potassium Replacement Protocol 1 EACH MISC MISCELLANE PRN (15:57)
[2021-03-16] MEDS: POTASSIUM CHLORIDE ER 20 MEQ TAB.ER PO SCH ×3 (16:49→18:16)
[2021-03-16] MEDS: FILGRASTIM-SNDZ 300 MCG/0.5 ML SYRINGE SQ SCH (18:30)
[2021-03-16] MEDS: ACETAMINOPHEN TAB 325 MG TAB PO PRN (21:08)
[2021-03-17] MEDS: SODIUM CHLORIDE 0.9% 1,000 ML IV SCH (05:04)
[2021-03-17] MEDS: PANTOPRAZOLE 40 MG TABLET PO SCH (08:15)
[2021-03-17] MEDS: FERROUS SULFATE 325 MG TAB PO SCH (08:16)
[2021-03-17] MEDS: ATORVASTATIN 80 MG TAB PO SCH (08:16)
[2021-03-17] MEDS: CHOLESTYRAMINE (WITH SUGAR) 4 GM PACKET PO SCH ×2 (08:16→17:14)
[2021-03-17] MEDS: DIPHENOX-ATROP 2.5-0.025 MG 1 EACH TAB PO SCH ×4 (09:30→21:40)
[2021-03-17] MEDS: MEGESTROL 400 MG/10 ML CUP PO SCH (09:31)
--- NOTE | 2021-03-17 10:15 | P.PN ---
Subjective Progress Note Date: 03/17/21 The patient was laying in bed and appeared comfortable. However he states that he has not been able to eat anything as his upper abdomen is hurting. He still having loose stools though they are partially formed for nursing. He has increased cramping and then a bowel movement every time he tries to eat. Objective - Vital Signs Vital signs: Vital Signs Temp 97.6 F 03/17/21 04:33 Pulse 79 03/17/21 04:33 Resp 16 03/17/21 04:33 BP 121/69 03/17/21 04:33 Pulse Ox 91 L 03/17/21 04:33 Intake & Output 03/16/21 03/17/21 03/17/21 18:59 06:59 18:59 Intake Total 120 1300 Output Total 300 Balance -180 1300 Weight 45.359 kg Intake: Intake, IV Titration 900 Amount Sodium Chloride 0.9% 1, 900 000 ml @ 75 mls/hr IV . [id number] [facility] Rx#:[id number] Oral 120 400 Output: Urine 300 Other: Voiding Method Diaper Diaper Incontinent Incontinent # Voids 3 # Bowel Movements 5 - Constitutional General appearance: Present: mild distress - EENT Eyes: Present: EOMI ENT: Present: hearing grossly normal, normal oropharynx - Respiratory Respiratory: bilateral: CTA - Cardiovascular Rhythm: regular Heart sounds: normal: S1, S2 - Gastrointestinal Localized gastrointestinal: tender: diffuse - Integumentary Integumentary: Present: normal - Neurologic Neurologic: Present: CNII-XII intact - Musculoskeletal Musculoskeletal: Present: generalized weakness - Psychiatric Psychiatric Comment(s): The patient unable to provide any history- this is chronic baseline for him - Labs CBC & Chem 7: 03/16/21 05:37 03/16/21 22:02 Labs: Microbiology - Last 24 Hours (Table) 03/15/21 15:15 Stool Culture - Preliminary Stool Assessment and Plan (1) Diarrhea Narrative/Plan: The patient is still having loose bowel movements, associated with cramping. This appears to be set off by any attempts to eat. Abdominal exam does reveal tenderness. C. diff testing was not done as a stool was at least partially formed. At this time neutropenic colitis appears to be most likely. - The patient is on Questran. - Bowel rest would be recommended to WBC recovers. - Continue PPI - Check abdominal Xray Current Visit: Yes Status: Acute Priority: High Code(s): R19.7 - DIARRHEA, UNSPECIFIED SNOMED Code(s): 42255919 (2) Antineoplastic chemotherapy induced pancytopenia Narrative/Plan: The patient is on WBC growth factors. Hemoglobin and platelets are in a safe range at 7.8 and 33. Continue to monitor. Transfuse to keep hemoglobin greater than 7 and platelets greater than 10 Current Visit: Yes Status: Acute Priority: High Code(s): D61.810 - ANTINEOPLASTIC CHEMOTHERAPY INDUCED PANCYTOPENIA; T45.1X5A - ADVERSE EFFECT OF ANTINEOPLASTIC AND IMMUNOSUP DRUGS, INIT SNOMED Code(s): 420571563706091 (3) Dehydration Narrative/Plan: Continue IV hydration. This is due to decreased oral intake. Adjust IV fluids as appropriate. Current Visit: Yes Status: Acute Priority: High Code(s): E86.0 - DEHYDRATION SNOMED Code(s): 11164758 Plan: I had a detailed discussion about the patient's current status with his legal guardian, Mr. Israel. I discussed that given his underlying diagnosis, if the patient were to deteriorate despite appropriate aggressive medical treatment, then typically the chances of clinical benefit from aggressive measures such as intubation and CPR would be extremely slim. He was in agreement with that. Based on our discussion, the patient's CODE STATUS will be changed to no code noCPR.
[2021-03-17] MEDS ORDERED: DEXTROSE 5%-0.9% NACL 1,000 ML with POTASSIUM CHLORIDE 20 MEQ IV SCH ×2 (10:30)
--- NOTE | 2021-03-17 11:06 | XR ---
EXAMINATION TYPE: XR abdomen acute w cxr DATE OF EXAM: 03/17/2021 COMPARISON: CT 01/10/2021 HISTORY: Abdominal pain, neutropenic colitis TECHNIQUE: Supine, upright, and frontal chest views of the abdomen and chest are obtained. FINDINGS: There has been interval development of increased attenuation at the left lung base, the le ft hemidiaphragm is obscured, there is retrocardiac density. Probable epicardial lead present over th e left upper quadrant. Degenerative disc changes are present in the visualized spine. There are overl florence artifacts. Patient is post median sternotomy. There is no evidence for pneumoperitoneum. Gas distended colon is present, there are associated air-fluid levels. IMPRESSION: Gas distended loops of colon could be related to patient's colitis. Left lower lobe atelectasis versu s pneumonia and associated effusion.
[2021-03-17 11:15] LABS: Anisocytosis Slight; HCT 23.2 % (39.0-53.0); HGB 7.6 gm/dL (13.0-17.5); Hypochromasia Slight; MCHC 32.9 g/dL (31.0-37.0); RBC 2.64 m/uL (4.30-5.90); RDW 16.2 % (11.5-15.5)
[2021-03-17 11:18] LABS: Platelet Count 40 k/uL (150-450)
--- NOTE | 2021-03-17 11:18 | P.PN ---
Subjective Progress Note Date: 03/17/21 Patient is still having frequent mushy stools. Objective - Vital Signs Vital signs: Vital Signs Temp 97.6 F 03/17/21 04:33 Pulse 79 03/17/21 08:40 Resp 16 03/17/21 08:40 BP 121/69 03/17/21 04:33 Pulse Ox 91 L 03/17/21 04:33 Intake & Output 03/16/21 03/17/21 03/17/21 18:59 06:59 18:59 Intake Total 120 1300 Output Total 300 Balance -180 1300 Weight 45.359 kg Intake: Intake, IV Titration 900 Amount Sodium Chloride 0.9% 1, 900 000 ml @ 75 mls/hr IV . [id number] [facility] Rx#:[id number] Oral 120 400 Output: Urine 300 Other: Voiding Method Diaper Diaper Diaper Incontinent Incontinent Incontinent # Voids 3 # Bowel Movements 5 - Exam General: The patient is awake and alert, in no distress Eye: there is normal conjunctiva bilaterally. Neck: The neck is supple, there is no JVD. Cardiovascular: Normal S1-S2, no S3-S4, no murmurs. Respiratory: Lungs clear to auscultation bilaterally Gastrointestinal: Abdomen is soft, nontender Musculoskeletal: There is no pedal edema. Neurological:. Speech is normal. Skin: Skin is warm and dry - Labs CBC & Chem 7: 03/16/21 05:37 03/16/21 22:02 Labs: Microbiology - Last 24 Hours (Table) 03/15/21 15:15 Stool Culture - Preliminary Stool Assessment and Plan Assessment: 1. Chemo-induced diarrhea and vomiting, stool sample not lose enough for lab to run C. diff screen 2. Hypovolemic hyponatremia, improving 3. Dehydration 4. Metastatic bladder cancer with metastases to the liver and lungs on chemotherapy 5. Chemo-induced pancytopenia 6. CODE STATUS: DO NOT RESUSCITATE/DO NOT INTUBATE, discussed by oncology with Guardian Today, I reviewed his medication list and lab work results. Awaiting lab work from this morning. Normal saline at 75 mL per hour. We will avoid sodium o vercorrection. Oncology consulted, appreciate recommendations. Started on Zarxio. We will continue supportive care otherwise.
[2021-03-17 11:24] LABS: ALT 32 U/L (4-49); AST 43 U/L (17-59); African American GFR (CKD) 87 (>60 ml/min/1.73 sqM); Albumin 1.9 g/dL (3.5-5.0); Albumin/Globulin Ratio 0.7; Alkaline Phosphatase 82 U/L (38-126); Anion Gap 7 mmol/L; Blood Urea Nitrogen 25 mg/dL (9-20); Calcium 7.4 mg/dL (8.4-10.2); Carbon Dioxide 16 mmol/L (22-30); Chloride 107 mmol/L (98-107); Globulin 2.8 g/dL; Glucose 86 mg/dL (74-99); Non-African American GFR(CKD) 75 (>60 ml/min/1.73 sqM); Potassium 3.8 mmol/L (3.5-5.1); Sodium 130 mmol/L (137-145); Total Bilirubin 0.5 mg/dL (0.2-1.3); Total Protein 4.7 g/dL (6.3-8.2)
[2021-03-17] MEDS: D5-0.9% NACL WITH KCL 20 MEQ/L 1,000 ML IV SCH ×2 (11:40→21:41)
[2021-03-17] MEDS: metroNIDAZOLE-NS PMX 500 MG in SALINE 1 100ML.BAG IVPB SCH ×2 (12:13→17:57)
[2021-03-17 12:31] LABS: Band Neutrophils % 3 %; Lymphocytes # (M) 0.72 k/uL (1.0-4.8); Monocytes # (M) 0.48 k/uL (0-1.0); Neutrophils % (M) 37 %; Nucleated Red Blood Cells 0 /100 WBC (0-0); Total Cells Counted 100
[2021-03-17] MEDS: FILGRASTIM-SNDZ 300 MCG/0.5 ML SYRINGE SQ SCH (17:58)
[2021-03-17] MEDS: ACETAMINOPHEN TAB 325 MG TAB PO PRN (21:40)
[2021-03-18] MEDS: metroNIDAZOLE-NS PMX 500 MG in SALINE 1 100ML.BAG IVPB SCH ×3 (02:27→19:03)
[2021-03-18 05:29] LABS: Anisocytosis Slight; HCT 23.7 % (39.0-53.0); HGB 7.7 gm/dL (13.0-17.5); Hypochromasia Slight; MCHC 32.4 g/dL (31.0-37.0); MCV 89.6 fL (80.0-100.0); Mean Platelet Volume 11.2; Platelet Count 39 k/uL (150-450); RBC 2.65 m/uL (4.30-5.90); RDW 16.1 % (11.5-15.5)
[2021-03-18] MEDS: D5-0.9% NACL WITH KCL 20 MEQ/L 1,000 ML IV SCH ×2 (06:16→14:56)
[2021-03-18 06:19] LABS: Band Neutrophils % 10 %; Lymphocytes # (M) 1.08 k/uL (1.0-4.8); Monocytes # (M) 0.76 k/uL (0-1.0); Neutrophils % (M) 44 %; Nucleated Red Blood Cells 0 /100 WBC (0-0); Total Cells Counted 100
[2021-03-18 06:20] LABS: Anisocytosis (M) Present; Polychromasia Present
[2021-03-18] MEDS: PANTOPRAZOLE 40 MG TABLET PO SCH (08:13)
[2021-03-18] MEDS: MEGESTROL 400 MG/10 ML CUP PO SCH (08:13)
[2021-03-18] MEDS: FERROUS SULFATE 325 MG TAB PO SCH (08:13)
[2021-03-18] MEDS: ATORVASTATIN 80 MG TAB PO SCH (08:13)
[2021-03-18] MEDS: CHOLESTYRAMINE (WITH SUGAR) 4 GM PACKET PO SCH ×2 (08:13→17:03)
[2021-03-18] MEDS: DIPHENOX-ATROP 2.5-0.025 MG 1 EACH TAB PO SCH ×4 (08:29→21:15)
[2021-03-18] MEDS: IOPAMIDOL CONTRAST (ORAL USE) VIAL PO PRN ×2 (11:36→12:28)
--- NOTE | 2021-03-18 12:00 | P.PN ---
Subjective Progress Note Date: 03/18/21 Principal diagnosis: dehydration, urothelial carcinoma, on chemo In f/u today pt is on his side, c/o worse abd pain, he has emesis basin by him, denies vomiting. No fever, mild oral irritation and poor appetite. Objective - Vital Signs Vital signs: Vital Signs Temp 97.9 F 03/18/21 04:56 Pulse 91 03/18/21 04:56 Resp 18 03/18/21 08:00 BP 113/67 03/18/21 04:56 Pulse Ox 94 L 03/18/21 04:56 Intake & Output 03/17/21 03/18/21 03/18/21 18:59 06:59 18:59 Intake Total 60 1300 Output Total 300 Balance -240 1300 Intake: Intake, IV Titration 1300 Amount D5-0.9% NaCl with KCl 20 1200 Meq/l 1,000 ml @ 100 mls/ hr IV .Q10H [facility] Rx#: [id number] metroNIDAZOLE-NS PMX 500 100 mg In Saline 1 100ml.bag @ 100 mls/hr IVPB Q8H [facility] Rx#:[id number] Oral 60 Output: Urine 300 Other: Voiding Method Diaper Diaper Diaper Incontinent Incontinent Incontinent # Voids 3 # Bowel Movements 5 3 3 - Constitutional General appearance: Present: average body habitus, mild distress - EENT Eyes: Present: anicteric sclerae, EOMI ENT: Present: hearing grossly normal - Respiratory Details: resp even and unlabored - Gastrointestinal General gastrointestinal: Present: normal bowel sounds, soft, tenderness (LLQ). Absent: absent bowel sounds, decreased bowel sounds, distended, hepatomegaly, hy peractive bowel sounds, organomegaly, rigid, scaphoid, splenomegaly, umbilical hernia, ventral hernia - Neurologic Neurologic: Present: CNII-XII intact - Musculoskeletal Musculoskeletal: Present: strength equal bilaterally - Psychiatric Psychiatric: Present: A&O x's 3, appropriate affect - Labs CBC & Chem 7: 03/18/21 04:36 03/17/21 10:24 Labs: Abnormal Lab Results - Last 24 Hours (Table) 03/15/21 03/17/21 03/17/21 Range/Units 15:15 10:24 10:24 WBC 2.0 L (3.8-10.6) k/uL RBC 2.64 L (4.30-5.90) m/uL Hgb 7.6 L (13.0-17.5) gm/dL Hct 23.2 L (39.0-53.0) % RDW 16.2 H (11.5-15.5) % Plt Count 40 L (150-450) k/uL Neutrophils # (Manual) 0.80 L (1.3-7.7) k/uL Lymphocytes # (Manual) 0.72 L (1.0-4.8) k/uL Sodium 130 L (137-145) mmol/L Carbon Dioxide 16 L (22-30) mmol/L BUN 25 H (9-20) mg/dL Calcium 7.4 L (8.4-10.2) mg/dL Total Protein 4.7 L (6.3-8.2) g/dL Albumin 1.9 L (3.5-5.0) g/dL Stool Lactoferrin POSITIVE A (NEGATIVE) 03/18/21 Range/Units 04:36 WBC (3.8-10.6) k/uL RBC 2.65 L (4.30-5.90) m/uL Hgb 7.7 L (13.0-17.5) gm/dL Hct 23.7 L (39.0-53.0) % RDW 16.1 H (11.5-15.5) % Plt Count 39 L (150-450) k/uL Neutrophils # (Manual) (1.3-7.7) k/uL Lymphocytes # (Manual) (1.0-4.8) k/uL Sodium (137-145) mmol/L Carbon Dioxide (22-30) mmol/L BUN (9-20) mg/dL Calcium (8.4-10.2) mg/dL Total Protein (6.3-8.2) g/dL Albumin (3.5-5.0) g/dL Stool Lactoferrin (NEGATIVE) - Imaging and Cardiology Abdominal x-ray: report reviewed Assessment and Plan (1) Abdominal pain Narrative/Plan: LLQ pain still c/o diarrhea, abd cramping prior to stooling. No improvement with supportive care, GCSF. Acute abd series neg for obstruction. CT AP ordered Current Visit: Yes Status: Acute Priority: High Code(s): R10.9 - UNSPECIFIED ABDOMINAL PAIN SNOMED Code(s): 64606754 (2) Dehydration Narrative/Plan: IV hydration Na+, BUN/Cr improving Current Visit: Yes Status: Acute Priority: High Code(s): E86.0 - DEHYDRATION SNOMED Code(s): 80123229 (3) Antineoplastic chemotherapy induced pancytopenia Narrative/Plan: GCSF started, WBC 4, ANC 2.1. GIve GCSF today, recheck labs in AM Transfuse for Hgb<7 unless symptomatic. No transfusion today, Hgb 7.7 Transfuse for plt <10,000 unless symptomatic. No asa,anticoagulation, NSAIDs until plt > 50,000. Plt 39,000 today CBC daily Current Visit: Yes Status: Acute Priority: High Code(s): D61.810 - ANTINEOPLASTIC CHEMOTHERAPY INDUCED PANCYTOPENIA; T45.1X5A - ADVERSE EFFECT OF ANTINEOPLASTIC AND IMMUNOSUP DRUGS, INIT SNOMED Code(s): 854309132279012 (4) Diarrhea Narrative/Plan: Multiple BM this AM. Stool culture still pending, lactoferritin positive. Medications for treatment of diarrhea ordered Current Visit: Yes Status: Acute Priority: High Code(s): R19.7 - DIARRHEA, UNSPECIFIED SNOMED Code(s): 30292538 (5) Hyponatremia Narrative/Plan: Improving with NS hydration Current Visit: Yes Status: Acute Priority: Medium Code(s): E87.1 - HYPO- OSMOLALITY AND HYPONATREMIA SNOMED Code(s): 88957420 (6) Metastasis from bladder cancer Narrative/Plan: Pt was due for cycle 5 day 8 last week. This has been held. Pt has had a good response to treatment. Plan was to complete 6 cycles. Will see how he does after recovery from his current condition. F/U in ofc prior to next treatment Current Visit: Yes Status: Acute Priority: High Code(s): C79.9 - SECONDARY MALIGNANT NEOPLASM OF UNSPECIFIED SITE; C67.9 - MALIGNANT NEOPLASM OF BLADDER, UNSPECIFIED SNOMED Code(s): 171282320 Plan: Attests: I have performed H&P, developed impression and plan of care for pt. Discussed with dictator. Agree with dictated note, documented as a scribe.
--- NOTE | 2021-03-18 12:49 | P.PN ---
Subjective Progress Note Date: 03/18/21 Patient is still having frequent mushy stools. No nausea or vomiting. He is currently nothing by mouth as directed by oncology. He denies any abdominal pain. Objective - Vital Signs Vital signs: Vital Signs Temp 97.9 F 03/18/21 04:56 Pulse 91 03/18/21 04:56 Resp 18 03/18/21 08:00 BP 113/67 03/18/21 04:56 Pulse Ox 94 L 03/18/21 04:56 Intake & Output 03/17/21 03/18/21 03/18/21 18:59 06:59 18:59 Intake Total 60 1300 Output Total 300 Balance -240 1300 Intake: Intake, IV Titration 1300 Amount D5-0.9% NaCl with KCl 20 1200 Meq/l 1,000 ml @ 100 mls/ hr IV .Q10H [facility] Rx#: [id number] metroNIDAZOLE-NS PMX 500 100 mg In Saline 1 100ml.bag @ 100 mls/hr IVPB Q8H [facility] Rx#:[id number] Oral 60 Output: Urine 300 Other: Voiding Method Diaper Diaper Diaper Incontinent Incontinent Incontinent # Voids 3 # Bowel Movements 5 3 3 - Exam General: The patient is awake and alert, in no distress Eye: there is normal conjunctiva bilaterally. Neck: The neck is supple, there is no JVD. Cardiovascular: Normal S1-S2, no S3-S4, no murmurs. Respiratory: Lungs clear to auscultation bilaterally Gastrointestinal: Abdomen is soft, nontender Musculoskeletal: There is no pedal edema. Neurological:. Speech is normal. Skin: Skin is warm and dry - Labs CBC & Chem 7: 03/18/21 04:36 03/17/21 10:24 Labs: Abnormal Lab Results - Last 24 Hours (Table) 03/15/21 03/18/21 Range/Units 15:15 04:36 RBC 2.65 L (4.30-5.90) m/uL Hgb 7.7 L (13.0-17.5) gm/dL Hct 23.7 L (39.0-53.0) % RDW 16.1 H (11.5-15.5) % Plt Count 39 L (150-450) k/uL Stool Lactoferrin POSITIVE A (NEGATIVE) Assessment and Plan Assessment: This is an unfortunate 70-year-old male with past medical history noted below who was sent to the emergency room from the chemo infusion center with worsening diarrhea and dehydration. Patient is admitted to the hospital for further management of his medical problems noted below. 1. Chemo-induced diarrhea and vomiting, stool sample not lose enough for lab to run C. diff screen 2. Hypovolemic hyponatremia, improving 3. Dehydration 4. Metastatic bladder cancer with metastases to the liver and lungs on chemotherapy 5. Chemo-induced pancytopenia 6. Underlying cognitive impairment 7. CODE STATUS: DO NOT RESUSCITATE/DO NOT INTUBATE, discussed by oncology with Guardian Today, I reviewed his medication list and lab work results. Awaiting lab work from this morning. Normal saline at 75 mL per hour. Oncology consulted, appreciate recommendations. Started on Zarxio. Patient is currently nothing by mouth awaiting diarrhea to improve as directed by oncology. We will continue supportive care otherwise. I spoke to his "Guardian, Kenny, over the phone today. I updated him about the patient's current condition. We discussed that the patient will remain in the hospital for a few more days until his overall condition improved. We discussed CODE STATUS again and he verbalized agreement to DO NOT RESUSCITATE/DO NOT INTUBATE CODE STATUS.
--- NOTE | 2021-03-18 13:48 | CT ---
EXAMINATION TYPE: CT abdomen pelvis w con DATE OF EXAM: 03/18/2021 COMPARISON: CT January 10, 2021 and older study September 21, 2020 HISTORY: abdominal pain, history of metastatic bladder cancer CT DLP: 633.1 mGycm, Automated Exposure Control for Dose Reduction was Utilized. CONTRAST: CT scan of the abdomen and pelvis is performed with oral and with IV Contrast, patient injected with 100 mL of Isovue 300. FINDINGS: LUNG BASES: New small to tiny right pleural effusion and associated compressive atelectasis. Left jacqueline g bases not included. LIVER/GB: Hepatic metastatic disease redemonstrated. Largest lesion measures 3.6 cm long axis axial i mage 7 fairly similar to prior study image 51. Contracted gallbladder again seen. PANCREAS: No significant abnormality is seen. SPLEEN: No significant abnormality is seen. ADRENALS: No significant abnormality is seen. KIDNEYS: Symmetric cortical injury uptake and excretion on current study. New mild left-sided hydrone phrosis noted. Eccentric mass or neoplasm along the right aspect of bladder wall less well seen on cu rrent study BOWEL: Suboptimal evaluation as oral contrast only reaches mid jejunal level in the left abdomen. No suspicious dilatation of stomach or duodenal sweep. Slightly more prominent contrast filled jejunal l oops in the left abdomen. Slightly prominent fluid-filled small bowel loops in the right abdomen. Fec al material seen in prominent right-sided colonic loops. Moderate to severe wall thickening in the si gmoid colon with more moderate wall thickening in the left colon. Transition near splenic flexure. PROSTATE/SEMINAL VESICLES: No gross abnormality seen. LYMPH NODES: No greater than 1cm abdominal or pelvic lymph nodes are appreciated. OSSEOUS STRUCTURES: Grade 1 anterolisthesis L4 on L5. Moderate to severe disc space narrowing lumbosa cral junction with endplate sclerosis and moderate anterior spurring. Spurring and narrowing right sa croiliac joint. OTHER: Moderate diffuse soft tissue anasarca on current study. Persistent moderate to large right scr otal fluid collection or hydrocele. Moderate to severe2 mixed plaque of the aorta extends into branch vessels. Persistent severe narrowing at origin of celiac artery and SMA noted on sagittal images. IMPRESSION: 1. Partial distal bowel obstruction likely on basis of colitis involving left and sigmoid colon. Lyle elate clinically for infectious, vascular, and/or inflammatory etiology. 2. New moderate diffuse soft tissue anasarca and small to tiny right pleural effusion is presumed pro duct of desired fluid overload state. This makes evaluation for subtle adenopathy slightly suboptimal versus older studies. 3. Improved right bladder mass or neoplasm. Fairly stable hepatic metastatic disease. Mild left-sided hydronephrosis but no delayed excretion.
[2021-03-18 16:33] LABS: African American GFR (CKD) 87.4 (60.0-200.0); Albumin 2.3 g/dL (3.80-4.90); Anion Gap 7.4 mmol/L (4.00-12.00); Calcium 7.2 mg/dL (8.7-10.3); Carbon Dioxide 14.6 mmol/L (21.6-31.8); Globulin 2.3 g/dL (1.6-3.3); Non-African American GFR(CKD) 75.4 (60.0-200.0); Potassium 4.1 mmol/L (3.5-5.5); Total Bilirubin 0.5 mg/dL (0.2-1.2); Total Protein 4.6 g/dL (6.2-8.2)
[2021-03-18] MEDS: FILGRASTIM-SNDZ 300 MCG/0.5 ML SYRINGE SQ SCH (17:03)
[2021-03-18] MEDS: ACETAMINOPHEN TAB 325 MG TAB PO PRN (17:08)
[2021-03-19] MEDS: metroNIDAZOLE-NS PMX 500 MG in SALINE 1 100ML.BAG IVPB SCH ×3 (02:46→20:17)
[2021-03-19] MEDS: D5-0.9% NACL WITH KCL 20 MEQ/L 1,000 ML IV SCH (02:47)
[2021-03-19] MEDS: ACETAMINOPHEN TAB 325 MG TAB PO PRN (02:54)
[2021-03-19 07:13] LABS: Anisocytosis Slight; HCT 23.1 % (39.0-53.0); HGB 7.7 gm/dL (13.0-17.5); Hypochromasia Slight; MCH 29.2 pg (25.0-35.0); MCHC 33.3 g/dL (31.0-37.0); MCV 87.8 fL (80.0-100.0); Mean Platelet Volume 11.3; RBC 2.63 m/uL (4.30-5.90); RDW 16.6 % (11.5-15.5); WBC 6.8 k/uL (3.8-10.6)
[2021-03-19 07:14] LABS: Platelet Count 51 k/uL (150-450)
[2021-03-19] MEDS: CHOLESTYRAMINE (WITH SUGAR) 4 GM PACKET PO SCH ×2 (08:17→17:18)
[2021-03-19] MEDS: DIPHENOX-ATROP 2.5-0.025 MG 1 EACH TAB PO SCH ×4 (08:17→20:47)
[2021-03-19] MEDS: FERROUS SULFATE 325 MG TAB PO SCH (08:18)
[2021-03-19] MEDS: ATORVASTATIN 80 MG TAB PO SCH (08:18)
[2021-03-19] MEDS: PANTOPRAZOLE 40 MG TABLET PO SCH (08:18)
[2021-03-19] MEDS: MEGESTROL 400 MG/10 ML CUP PO SCH (10:02)
[2021-03-19 10:37] LABS: Band Neutrophils % 3 %; Lymphocytes # (M) 1.56 k/uL (1.0-4.8); Metamyelocytes # (M) 0.07 k/uL (0); Metamyelocytes % 1 %; Monocytes # (M) 1.02 k/uL (0-1.0); Myelocytes % 3 %; Neutrophils % (M) 56 %; Nucleated Red Blood Cells 0 /100 WBC (0-0); Total Cells Counted 200
[2021-03-19 10:38] LABS: Dohle Bodies Present
[2021-03-19 10:42] LABS: Poikilocytosis (M) Present
[2021-03-19] MEDS ORDERED: SODIUM CHLORIDE 0.9% 1,000 ML IV ONE ×3 (10:44→23:35)
--- NOTE | 2021-03-19 12:08 | P.PN ---
Subjective Progress Note Date: 03/19/21 Principal diagnosis: dehydration, urothelial carcinoma, on chemo In f/u today pt is on his side, abd pain persists, not improving, cont to have multiple stools. Objective - Vital Signs Vital signs: Vital Signs Temp 97.5 F L 03/19/21 08:20 Pulse 98 03/19/21 09:00 Resp 20 03/19/21 09:00 BP 94/58 03/19/21 08:20 Pulse Ox 96 03/19/21 05:00 Intake & Output 03/18/21 03/19/21 03/19/21 18:59 06:59 18:59 Intake Total 600 700 120 Balance 600 700 120 Intake: IV 600 D5-0.9% NaCl with KCl 20 600 Meq/l 1,000 ml @ 100 mls/ hr IV .Q10H [facility] Rx#: [id number] Intake, IV Titration 700 Amount D5-0.9% NaCl with KCl 20 500 Meq/l 1,000 ml @ 100 mls/ hr IV .Q10H [facility] Rx#: [id number] metroNIDAZOLE-NS PMX 500 200 mg In Saline 1 100ml.bag @ 100 mls/hr IVPB Q8H [facility] Rx#:[id number] Oral 120 Other: Voiding Method Diaper Diaper Diaper Incontinent Incontinent # Voids 2 3 # Bowel Movements 5 4 - Constitutional General appearance: Present: average body habitus, cooperative, mild distress - EENT Eyes: Present: anicteric sclerae, EOMI ENT: Present: hearing grossly normal - Respiratory Respiratory: bilateral: CTA (crackles at bases) - Cardiovascular Rhythm: regular Heart sounds: normal: S1, S2 Abnormal Heart Sounds: Absent: systolic murmur, diastolic murmur, rub, S3 Gallop, S4 Gallop, click, other - Peripheral edema leg Peripheral Edema: bilateral: None - Gastrointestinal General gastrointestinal: Present: normal bowel sounds, soft, tenderness (LLQ, left side of abd) - Musculoskeletal Musculoskeletal: Present: generalized weakness - Labs CBC & Chem 7: 03/19/21 05:34 03/18/21 04:36 Labs: Abnormal Lab Results - Last 24 Hours (Table) 03/18/21 03/19/21 03/19/21 Range/Units 04:36 05:34 09:47 RBC 2.63 L (4.30-5.90) m/uL Hgb 7.7 L (13.0-17.5) gm/dL Hct 23.1 L (39.0-53.0) % RDW 16.6 H (11.5-15.5) % Plt Count 51 L (150-450) k/uL Monocytes # (Manual) 1.02 H (0-1.0) k/uL Metamyelocytes # (Man) 0.07 H (0) k/uL Myelocytes # (Manual) 0.20 H (0) k/uL Chloride 114 H (96-109) mmol/L Carbon Dioxide 14.6 L (21.6-31.8) mmol/L BUN/Creatinine Ratio 21.00 H (12.00-20.00) Ratio Glucose 116 H (70-110) mg/dL Plasma Lactic Acid Schuyler 3.2 H* (0.7-2.0) mmol/L Calcium 7.2 L (8.7-10.3) mg/dL Total Protein 4.6 L (6.2-8.2) g/dL Albumin 2.30 L (3.80-4.90) g/dL Albumin/Globulin Ratio 1.00 L (1.60-3.17) g/dL - Imaging and Cardiology CT scan - abdomen: report reviewed CT scan - pelvis: report reviewed Assessment and Plan (1) Abdominal pain Narrative/Plan: LLQ pain still c/o diarrhea, abd cramping prior to stooling. No improvement with supportive care, GCSF. Post CT, colitis, lactic acid elevated, IM started abx. Surgery consulted concerns for ischemic bowel. D/W Dietitian, TPN started as pt is on bowel rest. PICC line ordered Current Visit: Yes Status: Acute Priority: High Code(s): R10.9 - UNSPECIFIED ABDOMINAL PAIN SNOMED Code(s): 40488376 (2) Dehydration Narrative/Plan: IV hydration Na+, BUN/Cr improving Current Visit: Yes Status: Acute Priority: High Code(s): E86.0 - DEHYDRA TION SNOMED Code(s): 10423626 (3) Antineoplastic chemotherapy induced pancytopenia Narrative/Plan: GCSF started, WBC 6.8, ANC 4. Give GCSF today then DC. Transfuse for Hgb<7 unless symptomatic. No transfusion today, Hgb 7.7 Transfuse for plt <10,000 unless symptomatic. Plt 51,000 today. No asa, anticoagulation, NSAIDs until plt > 50,000-going to recheck labs in AM and see how plt are before starting DVT prophylaxis, use SCDs for now CBC daily Current Visit: Yes Status: Acute Priority: High Code(s): D61.810 - A NTINEOPLASTIC CHEMOTHERAPY INDUCED PANCYTOPENIA; T45.1X5A - ADVERSE EFFECT OF ANTINEOPLASTIC AND IMMUNOSUP DRUGS, INIT SNOMED Code(s): 314382013786511 (4) Diarrhea Narrative/Plan: Multiple BM this AM. Stool culture still pending, lactoferritin positive. Medications for treatment of diarrhea ordered Current Visit: Yes Status: Acute Priority: High Code(s): R19.7 - DIARRHEA, UNSPECIFIED SNOMED Code(s): 05411231 (5) Hyponatremia Narrative/Plan: Improving with NS hydration-normal today Current Visit: Yes Status: Acute Priority: Medium Code(s): E87.1 - HYPO- OSMOLALITY AND HYPONATREMIA SNOMED Code(s): 88268975 (6) Metastasis from bladder cancer Narrative/Plan: Pt was due for cycle 5 day 8 last week. This has been held. Pt has had a good response to treatment. Plan was to complete 6 cycles. Will see how he does after recovery from his current condition. F/U in ofc prior to next treatment Current Visit: Yes Status: Acute Priority: High Code(s): C79.9 - SECONDARY MALIGNANT NEOPLASM OF UNSPECIFIED SITE; C67.9 - MALIGNANT NEOPLASM OF BLADDER, UNSPECIFIED SNOMED Code(s): 018352083 Plan: Given phone number to contact guardian Kenny at his request to update him on pt condition, no answer and no voice mail Attests: I have performed H&P, developed impression and plan of care for pt. Discussed with dictator. Agree with dictated note, documented as a scribe.
[2021-03-19 12:16] LABS: African American GFR (CKD) 99.2 (60.0-200.0); Anion Gap 8.2 mmol/L (4.00-12.00); BUN/Creat Ratio 15.56 Ratio (12.00-20.00); Calcium 7.3 mg/dL (8.7-10.3); Carbon Dioxide 17.8 mmol/L (21.6-31.8); Magnesium 1.6 mg/dL (1.5-2.4); Non-African American GFR(CKD) 85.6 (60.0-200.0); Potassium 3.9 mmol/L (3.5-5.5)
[2021-03-19] MEDS: SODIUM CHLORIDE 0.9% 1,000 ML IV SCH ×2 (12:45→17:21)
[2021-03-19] MEDS ORDERED: LIDOCAINE 1% INJ 10MG/ML (20 ML MDV) ONE (13:43)
[2021-03-19] MEDS ORDERED: LIDOCAINE 1% INJ 10MG/ML (20 ML MDV) SQ ONE (14:02)
[2021-03-19] MEDS ORDERED: IV FLUID CONTINUATION 1,000 ML IV ONE (14:21)
--- NOTE | 2021-03-19 14:54 | XR ---
EXAMINATION TYPE: XR chest 1V confirm line plcmt, XR chest 1V confirm line plcmt, XR chest 1V confirm line plcmt DATE OF EXAM: 03/19/2021 HISTORY: Shortness of breath. COMPARISON: Same day TECHNIQUE: 3 portable chest were obtained following PICC line placement. FINDINGS: PICC line has been readjusted and final radiograph from 03/19/2021 2:[address] acement of PICC line overlying the SVC. No evidence for pneumothorax. Pulmonary venous congestion and left basilar atelectasis and/or effusion. IMPRESSION: 1. Left-sided PICC line as noted.
--- NOTE | 2021-03-19 14:58 | IR ---
EXAMINATION TYPE: IR cvc insert >=5 years DATE OF EXAM: 03/19/2021 COMPARISON: NONE HISTORY: Needs long-term intravenous access for total parenteral nutrition FINDINGS: Maximal barrier technique was utilized. Hand hygiene obtained with soap and water and alco hol-based hand rub. The skin overlying the left brachial vein was localized with ultrasound and noted to be compressible and patent by ultrasound. An ultrasound image was obtained and submitted on julia ent's chart. Sterile technique utilized with the ultrasound machine. The skin overlying was prepped a nd draped and Lidocaine used for local anesthesia. A skin nando was made with a scalpel. Access was gained to the vein under direct ultrasound guidance with a 21-gauge needle and a 0.018 inch wire was advanced. Access site was dilated with a peel-away sheath and the catheter tailored to length. Cath eter advanced centrally and a post procedure chest x-ray verified placement with tip at the superior vena cava. Catheter was fixed to the skin and a sterile dressing placed. Hemostasis achieved and th e catheter was aspirated and flushed with sterile saline. The patient remained in stable condition. IMPRESSION: STATUS POST ULTRASOUND GUIDED PICC LINE PLACEMENT, READY FOR USE. THIS PROCEDURE WAS PER FORMED BY THE UNDERSIGNED.
[2021-03-19] MEDS ORDERED: FUROSEMIDE 10 MG/ML 4 ML VIAL IV STA (15:09)
[2021-03-19] MEDS: MAGNESIUM SULFATE-D5W PMX 1 GM in DEXTROSE/WATER 1 100ML.BAG IVPB SCH ×3 (15:16→17:16)
[2021-03-19] MEDS ORDERED: FAT EMULSION 20% 500 ML IV SCH (16:00)
[2021-03-19] MEDS ORDERED: [UNRECOGNIZED DRUG - REMARK] IV ONE ×8 (16:00)
[2021-03-19] MEDS: FILGRASTIM-SNDZ 300 MCG/0.5 ML SYRINGE SQ SCH (17:29)
--- NOTE | 2021-03-19 18:11 | P.PN ---
<Ankush Mccollum - Last Filed: 03/19/21 17:40> Subjective Progress Note Date: 03/19/21 Hospital course: Patient is a 70-year-old male with a past medical history of hypertension, hyp erlipidemia, and metastatic bladder cancer currently receiving chemotherapy who presented to the emergency department on 03/15/21 secondary to active bowl nausea, vomiting, and diarrhea status post receiving chemotherapy. Patient sent to the ER by [facility] for management of dehydration. Patient admitted under our services with consultation to hematology/oncology. Physical exam: Patient seen and fully evaluated at the bedside this morning. Patient scheduled for PICC line placement later this afternoon to begin TPN as discussed by Dr. Brownlee with pt's son Kenny. Patient limited with verbal response. Alert to place and time only, reported as baseline mentation secondary to underlying cognitive impairment. Physical examination finds patient to have continued persistent abdominal pain and left lower quadrant and nursing documented 12 epi sodes of diarrhea over the past 24 hours. Patient denies having any chest pain, palpitations, shortness of breath, nausea, or vomiting. Vital signs reviewed and stable. General: Nontoxic, thin/frail Derm: Skin warm and dry, normal coloration for ethnicity. Head: Atraumatic, normocephalic and symmetric. Eyes: EOMs intact, no lid lag, and anicteric sclera Mouth: no lip lesions, mucus membranes dry Cardiovascular: regular rate and rhythm with normal S1S2, no murmur, positive posterior tibial pulses bilaterally, and cap refill < 2 seconds. Lungs: Respirations even, regular, and unlabored on room air. Lungs CTA bilaterally, no rhonchi, no rales, no wheezing, and no accessory muscle usage. Abdominal: soft, tenderness to palpation left lower quadrant, no guarding, no appreciable organomegaly Ext: ROM intact. No gross muscle atrophy, no edema, no contractures Neuro: Speech clear, face symmetrical and CN II-XII grossly intact with no noted focal neuro deficits Psych: Alert and oriented to person and place, confused to time and situation. Assessment and Plan of Care: Chemo-induced diarrhea and vomiting Hypovolemic hyponatremia, improving Dehydration Metastatic bladder cancer with metastases to the liver and lungs on chemotherapy Chemo-induced pancytopenia Underlying cognitive impairment -Continue rehydration with IV fluids. -1 L bolus secondary to left elevated lactate of 3.2, and repeat lactate to be completed -Symptomatic care with antibiotics and pain management as needed -Patient being taken down for PICC line placement, plans for bowel rest and PICC line placement with initiation of TPN -Oncology following, appreciate further recommendations Lactic acidosis, likely secondary to dehydration secondary to persistent diarrhea -Fluid bolus followed by continued aggressive IV hydration -KUB -Repeat lactate -Continue with IV antibiotics Flagyl and Rocephin Partial distal bowel obstruction with colitis involving left sigmoid colon -Continue Flagyl and add Rocephin -Consult to Gen. surgery, Dr. Hernandez -NPO -Continue with fluid hydration Hypomagnesemia -Magnesium 1.6, replaced with 3 L magnesium IVPB CODE STATUS: DO NOT RESUSCITATE/DO NOT INTUBATE DVT prophylaxis: Mechanical/SCDs secondary to thrombocytopenia Discussed with: Patient and RN Anticipated discharge date: Clinical course to determine Anticipated discharge place: SNF vs home with home care A total of 45 minutes was spent on the care of this complex patient more than 50% of the time was spent in counseling and care coordination. Objective - Vital Signs Vital signs: Vital Signs Temp 97.5 F L 03/19/21 08:20 Pulse 98 03/19/21 09:00 Resp 20 03/19/21 09:00 BP 94/58 03/19/21 08:20 Pulse Ox 96 03/19/21 05:00 Intake & Output 03/18/21 03/19/21 03/19/21 18:59 06:59 18:59 Intake Total 600 700 120 Balance 600 700 120 Intake: IV 600 D5-0.9% NaCl with KCl 20 600 Meq/l 1,000 ml @ 100 mls/ hr IV .Q10H [facility] Rx#: [id number] Intake, IV Titration 700 Amount D5-0.9% NaCl with KCl 20 500 Meq/l 1,000 ml @ 100 mls/ hr IV .Q10H [facility] Rx#: [id number] metroNIDAZOLE-NS PMX 500 200 mg In Saline 1 100ml.bag @ 100 mls/hr IVPB Q8H [facility] Rx#:[id number] Oral 120 Other: Voiding Method Diaper Diaper Diaper Incontinent Incontinent # Voids 2 3 # Bowel Movements 5 4 - Labs CBC & Chem 7: 03/19/21 05:34 03/19/21 05:34 Labs: Abnormal Lab Results - Last 24 Hours (Table) 03/18/21 03/19/21 03/19/21 Range/Units 04:36 05:34 09:47 RBC 2.63 L (4.30-5.90) m/uL Hgb 7.7 L (13.0-17.5) gm/dL Hct 23.1 L (39.0-53.0) % RDW 16.6 H (11.5-15.5) % Plt Count 51 L (150-450) k/uL Monocytes # (Manual) 1.02 H (0-1.0) k/uL Metamyelocytes # (Man) 0.07 H (0) k/uL Myelocytes # (Manual) 0.20 H (0) k/uL Chloride 114 H (96-109) mmol/L Carbon Dioxide 14.6 L (21.6-31.8) mmol/L BUN/Creatinine Ratio 21.00 H (12.00-20.00) Ratio Glucose 116 H (70-110) mg/dL Plasma Lactic Acid Schuyler 3.2 H* (0.7-2.0) mmol/L Calcium 7.2 L (8.7-10.3) mg/dL Total Protein 4.6 L (6.2-8.2) g/dL Albumin 2.30 L (3.80-4.90) g/dL Albumin/Globulin Ratio 1.00 L (1.60-3.17) g/dL <Dariela Roman - Last Filed: 03/19/21 19:40> Subjective Patient seen and examined independently. Patient was also seen by Ankush Mccollum NP and case was discussed. I am in agreement with subjective, physical exam, assessment and plan as written above and amended below. He complains of some left lower quadrant pain. Denies any nausea or vomiting. States he is just not hungry. Agree with continued IV fluids, continue with nothing by mouth status for partial distal small bowel obstruction. Continue with pain control. Added Rocephin to Flagyl. General: non toxic, mild distress secondary to pain, appears at stated age Derm: warm, dry Head: atraumatic, normocephalic, symmetric Eyes: EOMI, no lid lag, anicteric sclera Mouth: no lip lesion, mucus membranes moist Cardiovascular: S1S2 reg, no murmur, positive posterior tibial pulse bilateral, Lungs: Coarse breath sounds bilateral, no rhonchi, no rales , no accessory muscle use Abdominal: soft, tender to palpation left lower quadrant, no guarding, no appreciable organomegaly Ext: no gross muscle atrophy, no edema, no contractures Neuro: CN II-XI grossly intact, no focal neuro deficits Psych: Alert, oriented, slowed thinking Objective - Vital Signs Vital signs: Vital Signs Temp 97.4 F L 03/19/21 14:55 Pulse 109 H 03/19/21 14:55 Resp 28 H 03/19/21 14:55 BP 119/81 03/19/21 14:55 Pulse Ox 88 L 03/19/21 14:55 Intake & Output 03/19/21 03/19/21 03/20/21 06:59 18:59 06:59 Intake Total 700 3191 Balance 700 3191 Weight 45.359 kg Intake: IV 400 D5-0.9% NaCl with KCl 20 300 Meq/l 1,000 ml @ 100 mls/ hr IV .Q10H [facility] Rx#: [id number] Intake, IV Titration 700 2051 Amount D5-0.9% NaCl with KCl 20 500 Meq/l 1,000 ml @ 100 mls/ hr IV .Q10H [facility] Rx#: [id number] Fat Emulsion 20% 500 ml @ 21 20.833 mls/hr IV TuFr [facility] Rx#:[id number] Mvi, Adult No.4 with Vit 30 K 10 ml Trace (Conc-1Ml/ Dose) 1 ml Calcium Gluconate 1 gm Sodium Acetate 30 meq Potassium Acetate 20 meq Magnesium Sulfate gm 1 gm Potassium Phosphate 6 mmol In Amino Acid 5%-D15w 1,000 ml @ 60 mls/hr IV . [id number] [facility] Rx#:[id number] Sodium Chloride 0.9% 1, 2000 000 ml @ 999 mls/hr IV . Q1H1M [facility] Rx#:[id number] metroNIDAZOLE-NS PMX 500 200 mg In Saline 1 100ml.bag @ 100 mls/hr IVPB Q8H [facility] Rx#:[id number] Oral 740 Other: Voiding Method Diaper Diaper Incontinent # Voids 3 5 # Bowel Movements 4 - Labs CBC & Chem 7: 03/19/21 05:34 03/19/21 05:34 Labs: Abnormal Lab Results - Last 24 Hours (Table) 03/19/21 03/19/21 03/19/21 Range/Units 05:34 05:34 09:47 RBC 2.63 L (4.30-5.90) m/uL Hgb 7.7 L (13.0-17.5) gm/dL Hct 23.1 L (39.0-53.0) % RDW 16.6 H (11.5-15.5) % Plt Count 51 L (150-450) k/uL Monocytes # (Manual) 1.02 H (0-1.0) k/uL Metamyelocytes # (Man) 0.07 H (0) k/uL Myelocytes # (Manual) 0.20 H (0) k/uL Chloride 114 H (96-109) mmol/L Carbon Dioxide 17.8 L (21.6-31.8) mmol/L Plasma Lactic Acid Schuyler 3.2 H* (0.7-2.0) mmol/L Calcium 7.3 L (8.7-10.3) mg/dL 03/19/21 Range/Units 15:00 RBC (4.30-5.90) m/uL Hgb (13.0-17.5) gm/dL Hct (39.0-53.0) % RDW (11.5-15.5) % Plt Count (150-450) k/uL Monocytes # (Manual) (0-1.0) k/uL Metamyelocytes # (Man) (0) k/uL Myelocytes # (Manual) (0) k/uL Chloride (96-109) mmol/L Carbon Dioxide (21.6-31.8) mmol/L Plasma Lactic Acid Schuyler 4.2 H* (0.7-2.0) mmol/L Calcium (8.7-10.3) mg/dL
--- NOTE | 2021-03-19 18:41 | XR ---
EXAMINATION TYPE: XR KUB DATE OF EXAM: 03/19/2021 COMPARISON: 03/17/2021 HISTORY: Abdominal pain TECHNIQUE: 2 views supine FINDINGS: There is some gas filled distended large bowel loops. There are also a few small bowel loop s distended with air. I see no evidence of free air. There is blunting left costophrenic angle and in filtrate left lung base. IMPRESSION: There is evidence for large and small bowel ileus not changed compared to recent exam. Th ere is left pleural effusion and left lower lobe pneumonia that is not changed.
[2021-03-19] MEDS ORDERED: IPRATROPIUM-ALBUTEROL 3 ML NEB INHALATION PRN (19:27)
[2021-03-19 20:42] LABS: Glucose,Whole Blood 190 mg/dL (75-99)
[2021-03-19] MEDS: INSULIN ASPART (NovoLOG) 100 UNIT/ML VIAL SQ SCH (20:48)
[2021-03-20] MEDS: PIPERACILLIN-TAZOBACTAM 3.375 GM in SODIUM CHLORIDE 0.9% 100 ML IVPB SCH ×2 (00:48→08:36)
--- NOTE | 2021-03-20 01:05 | CT ---
EXAMINATION TYPE: CT ChestAbdPelvis w con DATE OF EXAM: 03/20/2021 COMPARISON: 01/10/2021 and 03/18/2021 HISTORY: hypoxia, abd pain, elv lactate CT DLP: 621.40 mGycm Automated exposure control for dose reduction was used. CONTRAST: Performed with IV Contrast, patient injected with 100 mL of Isovue 300. There are moderate bilateral pleural effusions. There is lower lobe bilateral pulmonary consolidation and atelectasis. Heart is enlarged. There is no pericardial effusion. Thoracic aorta measures 4.1 cm involving ascending segment. There is no dissection. I see no filling defect in the pulmonary arteri es. There are several rounded hypodensities in the liver that measure up to 3.2 cm. Gallbladder is intact . Spleen is intact. Stomach is intact. There is no evidence of pancreatic mass. There is no adrenal mass. Kidneys have normal size and contour. There is no hydronephrosis. There is patchy areas of cortical decreased enhancement in both kidneys. There is no retroperitoneal adenopath y. Bladder distends smoothly. There is subcutaneous edema around the abdomen. There is some presacral edema. I see no evidence of a bowel obstruction. There is some thickening of the urinary bladder wal l on the right lateral aspect. There is diverticulum of the urinary bladder on the right side. There are sternal wires. Thoracic and lumbar spine appear intact. There is no compression fracture. T here are mild spondylotic changes in the thoracic and lumbar spine. Bony pelvis appears intact. IMPRESSION: Bilateral pleural effusions with lower lobe pulmonary infiltrates and atelectasis which appears incre ased compared to CT scan yesterday. Cardiomegaly. Multiple low density liver masses consistent with metastatic disease unchanged compared to yesterday. Multiple small cortical areas of decreased enhancement in both kidneys appears new compared to yester day and could relate to multifocal ischemia. Subcutaneous edema around the abdomen slightly increased compared to yesterday. There is significant improvement in the urinary bladder wall thickening compared to old CT scan of 01/10/2021. Liver masses appear smaller compared to 01/10/2021.
[2021-03-20] MEDS: INSULIN ASPART (NovoLOG) 100 UNIT/ML VIAL SQ SCH ×2 (01:36→08:35)
[2021-03-20 01:50] LABS: AST 59 U/L (17-59); African American GFR (CKD) 69 (>60 ml/min/1.73 sqM); Albumin 1.6 g/dL (3.5-5.0); Albumin/Globulin Ratio 0.6; Alkaline Phosphatase 109 U/L (38-126); Blood Urea Nitrogen 12 mg/dL (9-20); Calcium 7.6 mg/dL (8.4-10.2); Chloride 116 mmol/L (98-107); Globulin 2.7 g/dL; Glucose 119 mg/dL (74-99); Magnesium 2.7 mg/dL (1.6-2.3); Non-African American GFR(CKD) 60 (>60 ml/min/1.73 sqM); Potassium 4.3 mmol/L (3.5-5.1); Sodium 137 mmol/L (137-145); Total Bilirubin 0.2 mg/dL (0.2-1.3); Total Protein 4.3 g/dL (6.3-8.2)
[2021-03-20 01:57] LABS: ALT 30 U/L (4-49)
[2021-03-20 01:59] LABS: Carbon Dioxide <5 mmol/L (22-30)
--- NOTE | 2021-03-20 02:03 | P.PN ---
Progress Note - Text Progress Note Date: 03/20/21 Notified of the patient's repeat lactate of 11.7. The patient was seen and evaluated at the bedside. He reported ongoing mild abdominal pain but otherwise did not endorse any complaints. He was noted to have gradually worsening hypoxia, initially SpO2 90% on 3L but gradually increasing requirements. Following the imaging studies, the patient was noted to have and SpO2 92% on nonrebreather with 11 L of oxygen with pulse 88 and respiratory rate 32, and temp 98.1. The patient was then noted to have gradually worsening scleral icterus. General: Ill appearing male, in mild respiratory distress, appears stated age, frail HEENT: NC/AT, scleral icterus noted, moist conjunctiva, no lid-lag, PERRLA Cardiovascular: S1/S2 wnl, no murmurs, rubs, or gallops Lungs: Some scattered rhonchi bilaterally with no wheezing or rales appreciated, mildly increased respiratory effort Abdominal: Soft, non-tender, non-distended, no guarding, rebound, or rigidity Skin: Warm, dry Extremities: No edema or contractures Psychiatric: Alert, oriented to person and place Neuro: Moving all extremities, no focal deficits noted CT chest abdomen and pelvis with contrast was obtained revealing worsening bilateral pleural effusions and pulmonary infiltrates, along with multiple liver masses. Blood pressure remained steady at around 90s over 60s. Unclear etiology of clinical deterioration, suspected DIC. The case was discussed with the patient's legal guardian Kenny via phone. Discussed the patient's worsening clinical condition. He noted that in light of his metastatic malignancy and multiple comorbidities and poor quality of life, that he does not believe that the patient would wish for further aggressive interventions. He requested that the patient be made comfort care at this time. Again reiterated that he does not wish for the patient to be intubated or be moved to the medical ICU.
[2021-03-20 02:05] LABS: Anisocytosis Slight; Hypochromasia Marked; Macrocytosis Moderate; Mean Platelet Volume 9.6; RBC 2.38 m/uL (4.30-5.90); RDW 16.1 % (11.5-15.5); WBC 33.5 k/uL (3.8-10.6)
[2021-03-20 02:27] LABS: HGB 6.1 gm/dL (13.0-17.5); Platelet Count 94 k/uL (150-450)
[2021-03-20 02:28] LABS: MCH 25.6 pg (25.0-35.0); MCHC 24.6 g/dL (31.0-37.0)
[2021-03-20] MEDS ORDERED: HYDROmorphone 0.5 MG/0.5 ML SYRINGE IVP PRN (02:29)
[2021-03-20] MEDS ORDERED: MORPHINE SULFATE 2 MG/ML SYRINGE IVP ONE (02:29)
[2021-03-20] MEDS: SODIUM CHLORIDE 0.9% 1,000 ML IV SCH ×2 (02:34→08:37)
[2021-03-20] MEDS: MORPHINE SULFATE (100 MG/2 ML) 100 MG in SODIUM CHLORIDE 0.9% 100 ML IV SCH ×2 (03:19→03:51)
[2021-03-20] MEDS: metroNIDAZOLE-NS PMX 500 MG in SALINE 1 100ML.BAG IVPB SCH ×2 (03:27→08:38)
[2021-03-20 03:39] LABS: Band Neutrophils % 50 %; Lymphocytes # (M) 3.35 k/uL (1.0-4.8); Metamyelocytes # (M) 0.67 k/uL (0); Metamyelocytes % 2 %; Monocytes # (M) 1.01 k/uL (0-1.0); Myelocytes # (M) 0.34 k/uL (0); Myelocytes % 1 %; Neutrophils % (M) 35 %; Nucleated Red Blood Cells 0 /100 WBC (0-0); Total Cells Counted 200
[2021-03-20 03:40] LABS: Crenated RBC Present; RBC Fragments Present
[2021-03-20 03:42] LABS: Toxic Vacuolation Present
[2021-03-20 03:43] LABS: Large Platelets Present
[2021-03-20] MEDS ORDERED: LORazepam 2 MG/ML INJ IV STA (04:04)
[2021-03-20 08:06] VITALS: BP 91/57; RESP 14; TEMP 92.9
[2021-03-20] MEDS: MEGESTROL 400 MG/10 ML CUP PO SCH (08:37)
[2021-03-20] MEDS: PANTOPRAZOLE 40 MG TABLET PO SCH (08:37)
[2021-03-20] MEDS: DIPHENOX-ATROP 2.5-0.025 MG 1 EACH TAB PO SCH (08:37)
[2021-03-20] MEDS: FERROUS SULFATE 325 MG TAB PO SCH (08:37)
[2021-03-20] MEDS: ATORVASTATIN 80 MG TAB PO SCH (08:37)
[2021-03-20] MEDS: CHOLESTYRAMINE (WITH SUGAR) 4 GM PACKET PO SCH (08:38)
[2021-03-20] MEDS ORDERED: LORazepam 2 MG/ML INJ IV PRN (09:18)
--- NOTE | 2021-03-20 09:19 | P.PN ---
<Ankush Mccollum - Last Filed: 03/20/21 14:22> Subjective Progress Note Date: 03/20/21 Hospital course: Patient is a 70-year-old male with a past medical history of hypertension, hyp erlipidemia, and metastatic bladder cancer currently receiving chemotherapy who presented to the emergency department on 03/15/21 secondary to active bowl nausea, vomiting, and diarrhea status post receiving chemotherapy. Patient sent to the ER by [facility] for management of dehydration. Patient admitted under our services with consultation to hematology/oncology. Patient continued to have persistent abdominal pain and diarrhea. He was evaluated by nutrition services and was taken down for PICC line placement and scheduled to begin TPN to allow for bowel rest. However patient continued with persistent diarrhea and was found to have an elevated lactate of 3.2 and a 1 L bolus of 0.9% normal saline was given. Repeat lactate 4.2 and another liter of fluid was given followed by aggressive IV hydration with 0.9% normal saline at 130 mL's per hour and a KUB was completed partial/distal bowel obstruction with colitis of his left sigmoid colon. KUB resulted showing evidence of large and small bowel ileus not changed compared to previous exam with no evidence of free air. Overnight, lactate increased from 4.2 up to 11.5. Nighttime provider to bedside to assess patient and found patient to have increasing oxygen requirements and ordered for a stat CTA chest, abdomen and pelvis along with additional fluids. CTA showing bilateral pleural effusions with lower lobe pulmonary infiltrates and atelectasis which appeared to be new, multiple l low-density liver masses consistent with metastatic disease, multiple small cortical areas of decreased enhancement in both kidneys appears to be new compared to yesterday possibly secondary to multifocal ischemia, and subcutaneous edema around the abdomen is slightly increased compared to previous exam. Call was then placed to patient's guardian to discuss patient's worsening clinical condition in light of his metastatic malignancy and multiple comorbidities. It was decided by legal guardian, Kenny Mckeon, that he did not want patient to be transferred to ICU and requested patient to be placed on comfort care at this time with no further aggressive interventions. Physical exam: 03/20/21: Upon assessment this morning, patient nonverbal appeared comfortable. Patient did turn head and open eyes when spoken to. He did not appear to be in any distress. Comfort measures are in place and morphine drip infusing into be titrated per comfort scale. PRN Ativan available as needed for agitation or acute anxiety. Called and spoke with patient's legal guardian, Kenny Mckeon, at 9:10 AM regarding patient condition and recommended family/friends to be notified. Kenny requested patient to be kept comfortable and that all other medication and interventions be discontinued. Consult placed to hospice. Vital signs reviewed and BP 91/57, heart rate 70, respiratory rate 14, and SpO2 of 97% on 5 L at this time.. Patient was hypothermic with temperature of 92.9F and a warm blanket was applied. General: Nontoxic, thin/frail chronically ill-appearing Derm: Skin warm and dry, pale. Head: Atraumatic, normocephalic and symmetric. Eyes: No lid lag, and anicteric sclera Mouth: no lip lesions, mucus membranes dry Cardiovascular: regular rate and rhythm with normal S1S2, no murmur, positive posterior tibial pulses bilaterally, and cap refill < 2 seconds. No mottling noted Lungs: Respirations even, regular, and unlabored on 5 L O2 via nasal cannula. Lungs CTA bilaterally, no rhonchi, no rales, no wheezing, and no accessory muscle usage. Abdominal: soft, patient showed no signs of tenderness upon light palpation at this time. Ext: No gross muscle atrophy, no edema, no contractures Neuro: Patient nonverbal with minimal response this morning. Appears to be resting comfortably. Assessment and Plan of Care: Chemo-induced diarrhea and vomiting Hypovolemic hyponatremia, improving Dehydration Metastatic bladder cancer with metastases to the liver and lungs on chemotherapy Chemo-induced pancytopenia Underlying cognitive impairment Lactic acidosis, likely secondary to dehydration secondary to persistent gustavo rrhea Partial distal bowel obstruction with colitis involving left sigmoid colon Hypomagnesemia -Comfort measures only. -Consult to Hospice. -Continue morphine infusion to be titrated per comfort scale -PRN Ativan as needed for agitation or acute anxiety. -Scopolamine patch along with atropine drops as needed for excess secretions. CODE STATUS: COMFORT MEASURES ONLY....DO NOT RESUSCITATE/DO NOT INTUBATE. DVT prophylaxis: Mechanical/SCDs secondary to thrombocytopenia Discussed with: Patient, RN, and Kenny Mckeon-pt's legal guardian A total of 40 minutes was spent on the care of this complex patient more than 50% of the time was spent in counseling and care coordination. Objective - Vital Signs Vital signs: Vital Signs Temp 92.9 F L 03/20/21 08:03 Pulse 70 03/20/21 08:03 Resp 14 03/20/21 08:03 BP 91/57 03/20/21 08:03 Pulse Ox 98 03/20/21 01:30 Intake & Output 03/19/21 03/20/21 03/20/21 18:59 06:59 18:59 Intake Total 3191 501.088 Balance 3191 501.088 Weight 45.359 kg Intake: IV 400 D5-0.9% NaCl with KCl 20 300 Meq/l 1,000 ml @ 100 mls/ hr IV .Q10H [facility] Rx#: [id number] Intake, IV Titration 2050 1.088 Amount Fat Emulsion 20% 500 ml @ 21 20.833 mls/hr IV [facility] Rx#:[id number] Morphine Sulfate (100 mg/ 1.088 2 ml) 100 mg In Sodium Chloride 0.9% 100 ml @ 1 MG/HR 1.02 mls/hr IV . Q24H [facility] Rx#:[id number] Mvi, Adult No.4 with Vit 30 K 10 ml Trace (Conc-1Ml/ Dose) 1 ml Calcium Gluconate 1 gm Sodium Acetate 30 meq Potassium Acetate 20 meq Magnesium Sulfate gm 1 gm Potassium Phosphate 6 mmol In Amino Acid 5%-D15w 1,000 ml @ 60 mls/hr IV . [id number] [facility] Rx#:[id number] Sodium Chloride 0.9% 1, 2000 000 ml @ 999 mls/hr IV . Q1H1M [facility] Rx#:[id number] Oral 740 500 Other: Voiding Method Diaper Diaper # Voids 5 - Labs CBC & Chem 7: 03/20/21 01:00 03/20/21 01:00 Labs: Abnormal Lab Results - Last 24 Hours (Table) 03/19/21 03/19/21 03/19/21 Range/Units 05:34 05:34 09:47 WBC (3.8-10.6) k/uL RBC (4.30-5.90) m/uL Hgb (13.0-17.5) gm/dL Hct (39.0-53.0) % MCV (80.0-100.0) fL MCHC (31.0-37.0) g/dL RDW (11.5-15.5) % Plt Count (150-450) k/uL Neutrophils # (Manual) (1.3-7.7) k/uL Monocytes # (Manual) 1.02 H (0-1.0) k/uL Metamyelocytes # (Man) 0.07 H (0) k/uL Myelocytes # (Manual) 0.20 H (0) k/uL Chloride 114 H (96-109) mmol/L Carbon Dioxide 17.8 L (21.6-31.8) mmol/L Glucose (74-99) mg/dL POC Glucose (mg/dL) (75-99) mg/dL Plasma Lactic Acid Schuyler 3.2 H* (0.7-2.0) mmol/L Calcium 7.3 L (8.7-10.3) mg/dL Magnesium (1.6-2.3) mg/dL Total Protein (6.3-8.2) g/dL Albumin (3.5-5.0) g/dL 03/19/21 03/19/21 03/19/21 Range/Units 15:00 20:40 20:51 WBC (3.8-10.6) k/uL RBC (4.30-5.90) m/uL Hgb (13.0-17.5) gm/dL Hct (39.0-53.0) % MCV (80.0-100.0) fL MCHC (31.0-37.0) g/dL RDW (11.5-15.5) % Plt Count (150-450) k/uL Neutrophils # (Manual) (1.3-7.7) k/uL Monocytes # (Manual) (0-1.0) k/uL Metamyelocytes # (Man) (0) k/uL Myelocytes # (Manual) (0) k/uL Chloride (96-109) mmol/L Carbon Dioxide (21.6-31.8) mmol/L Glucose (74-99) mg/dL POC Glucose (mg/dL) 190 H (75-99) mg/dL Plasma Lactic Acid Schuyler 4.2 H* 11.5 H* (0.7-2.0) mmol/L Calcium (8.7-10.3) mg/dL Magnesium (1.6-2.3) mg/dL Total Protein (6.3-8.2) g/dL Albumin (3.5-5.0) g/dL 03/19/21 03/20/21 03/20/21 Range/Units 22:09 01:00 01:00 WBC 33.5 H (3.8-10.6) k/uL RBC 2.38 L (4.30-5.90) m/uL Hgb 6.1 L* D (13.0-17.5) gm/dL Hct 25.0 L (39.0-53.0) % MCV 105.0 H D (80.0-100.0) fL MCHC 24.6 L (31.0-37.0) g/dL RDW 16.1 H (11.5-15.5) % Plt Count 94 L D (150-450) k/uL Neutrophils # (Manual) 28.40 H (1.3-7.7) k/uL Monocytes # (Manual) 1.01 H (0-1.0) k/uL Metamyelocytes # (Man) 0.67 H (0) k/uL Myelocytes # (Manual) 0.34 H (0) k/uL Chloride 116 H (96-109) mmol/L Carbon Dioxide <5 L* (21.6-31.8) mmol/L Glucose 119 H (74-99) mg/dL POC Glucose (mg/dL) (75-99) mg/dL Plasma Lactic Acid Schuyler 11.7 H* (0.7-2.0) mmol/L Calcium 7.6 L (8.7-10.3) mg/dL Magnesium 2.7 H (1.6-2.3) mg/dL Total Protein 4.3 L (6.3-8.2) g/dL Albumin 1.6 L (3.5-5.0) g/dL 03/20/21 Range/Units 01:30 WBC (3.8-10.6) k/uL RBC (4.30-5.90) m/uL Hgb (13.0-17.5) gm/dL Hct (39.0-53.0) % MCV (80.0-100.0) fL MCHC (31.0-37.0) g/dL RDW (11.5-15.5) % Plt Count (150-450) k/uL Neutrophils # (Manual) (1.3-7.7) k/uL Monocytes # (Manual) (0-1.0) k/uL Metamyelocytes # (Man) (0) k/uL Myelocytes # (Manual) (0) k/uL Chloride (96-109) mmol/L Carbon Dioxide (21.6-31.8) mmol/L Glucose (74-99) mg/dL POC Glucose (mg/dL) (75-99) mg/dL Plasma Lactic Acid Schuyler 12.2 H* (0.7-2.0) mmol/L Calcium (8.7-10.3) mg/dL Magnesium (1.6-2.3) mg/dL Total Protein (6.3-8.2) g/dL Albumin (3.5-5.0) g/dL Microbiology - Last 24 Hours (Table) 03/15/21 15:15 Stool Culture - Final Stool <Dariela Roman - Last Filed: 03/20/21 14:56> Subjective Patient seen and examined independently. Patient was also seen by Ankush Mccollum NP and case was discussed. I am in agreement with subjective, physical exam, assessment and plan as written above and amended below. Does not wake up, appears comfortable, breathing equal bilateral. General: non toxic, no distress, appears at stated age Derm: warm, dry Head: atraumatic, normocephalic, symmetric Eyes: EOMI, no lid lag, anicteric sclera Mouth: no lip lesion, mucus membranes moist Cardiovascular: S1S2 reg, no murmur, positive posterior tibial pulse bilateral, Lungs: CTA bilateral, no rhonchi, no rales , no accessory muscle use Ext: no gross muscle atrophy, no edema, no contractures Neuro: CN II-XI grossly intact, no focal neuro deficits Psych: sleeping does not wake. Objective - Vital Signs Vital signs: Vital Signs Temp 92.9 F L 03/20/21 08:03 Pulse 70 03/20/21 08:03 Resp 14 03/20/21 08:03 BP 91/57 03/20/21 08:03 Pulse Ox 98 03/20/21 01:30 Intake & Output 03/19/21 03/20/21 03/20/21 18:59 06:59 18:59 Intake Total 3191 501.088 Balance 3191 501.088 Weight 45.359 kg 45.359 kg Intake: IV 400 D5-0.9% NaCl with KCl 20 300 Meq/l 1,000 ml @ 100 mls/ hr IV .Q10H [facility] Rx#: [id number] Intake, IV Titration 2051 1.088 Amount Fat Emulsion 20% 500 ml @ 21 20.833 mls/hr IV [facility] Rx#:[id number] Morphine Sulfate (100 mg/ 1.088 2 ml) 100 mg In Sodium Chloride 0.9% 100 ml @ 1 MG/HR 1.02 mls/hr IV . Q24H [facility] Rx#:[id number] Mvi, Adult No.4 with Vit 30 K 10 ml Trace (Conc-1Ml/ Dose) 1 ml Calcium Gluconate 1 gm Sodium Acetate 30 meq Potassium Acetate 20 meq Magnesium Sulfate gm 1 gm Potassium Phosphate 6 mmol In Amino Acid 5%-D15w 1,000 ml @ 60 mls/hr IV . [id number] [facility] Rx#:[id number] Sodium Chloride 0.9% 1, 2000 000 ml @ 999 mls/hr IV . Q1H1M [facility] Rx#:[id number] Oral 740 500 Other: Voiding Method Diaper Diaper Diaper # Voids 5 - Labs CBC & Chem 7: 03/20/21 01:00 03/20/21 01:00 Labs: Abnormal Lab Results - Last 24 Hours (Table) 03/19/21 03/19/21 03/19/21 Range/Units 15:00 20:40 20:51 WBC (3.8-10.6) k/uL RBC (4.30-5.90) m/uL Hgb (13.0-17.5) gm/dL Hct (39.0-53.0) % MCV (80.0-100.0) fL MCHC (31.0-37.0) g/dL RDW (11.5-15.5) % Plt Count (150-450) k/uL Neutrophils # (Manual) (1.3-7.7) k/uL Monocytes # (Manual) (0-1.0) k/uL Metamyelocytes # (Man) (0) k/uL Myelocytes # (Manual) (0) k/uL Chloride (98-107) mmol/L Carbon Dioxide (22-30) mmol/L Glucose (74-99) mg/dL POC Glucose (mg/dL) 190 H (75-99) mg/dL Plasma Lactic Acid Schuyler 4.2 H* 11.5 H* (0.7-2.0) mmol/L Calcium (8.4-10.2) mg/dL Magnesium (1.6-2.3) mg/dL Total Protein (6.3-8.2) g/dL Albumin (3.5-5.0) g/dL 03/19/21 03/20/21 03/20/21 Range/Units 22:09 01:00 01:00 WBC 33.5 H (3.8-10.6) k/uL RBC 2.38 L (4.30-5.90) m/uL Hgb 6.1 L* D (13.0-17.5) gm/dL Hct 25.0 L (39.0-53.0) % MCV 105.0 H D (80.0-100.0) fL MCHC 24.6 L (31.0-37.0) g/dL RDW 16.1 H (11.5-15.5) % Plt Count 94 L D (150-450) k/uL Neutrophils # (Manual) 28.40 H (1.3-7.7) k/uL Monocytes # (Manual) 1.01 H (0-1.0) k/uL Metamyelocytes # (Man) 0.67 H (0) k/uL Myelocytes # (Manual) 0.34 H (0) k/uL Chloride 116 H (98-107) mmol/L Carbon Dioxide <5 L* (22-30) mmol/L Glucose 119 H (74-99) mg/dL POC Glucose (mg/dL) (75-99) mg/dL Plasma Lactic Acid Schuyler 11.7 H* (0.7-2.0) mmol/L Calcium 7.6 L (8.4-10.2) mg/dL Magnesium 2.7 H (1.6-2.3) mg/dL Total Protein 4.3 L (6.3-8.2) g/dL Albumin 1.6 L (3.5-5.0) g/dL 03/20/21 Range/Units 01:30 WBC (3.8-10.6) k/uL RBC (4.30-5.90) m/uL Hgb (13.0-17.5) gm/dL Hct (39.0-53.0) % MCV (80.0-100.0) fL MCHC (31.0-37.0) g/dL RDW (11.5-15.5) % Plt Count (150-450) k/uL Neutrophils # (Manual) (1.3-7.7) k/uL Monocytes # (Manual) (0-1.0) k/uL Metamyelocytes # (Man) (0) k/uL Myelocytes # (Manual) (0) k/uL Chloride (98-107) mmol/L Carbon Dioxide (22-30) mmol/L Glucose (74-99) mg/dL POC Glucose (mg/dL) (75-99) mg/dL Plasma Lactic Acid Schuyler 12.2 H* (0.7-2.0) mmol/L Calcium (8.4-10.2) mg/dL Magnesium (1.6-2.3) mg/dL Total Protein (6.3-8.2) g/dL Albumin (3.5-5.0) g/dL Microbiology - Last 24 Hours (Table) 03/15/21 15:15 Stool Culture - Final Stool
[2021-03-20 09:21] VITALS: PULSE 109
[2021-03-20] MEDS ORDERED: ATROPINE OPHTH SOLN 1% 5ML BTL SUBLINGUAL PRN (14:47)
[2021-03-20] MEDS ORDERED: SCOPOLAMINE 1.5MG/72HR PATCH TRANSDERM SCH (15:00)
[2021-03-20] MEDS ORDERED: MVI, ADULT NO.4 WITH VIT K 10 ML, TRACE (CONC-1ML/DOSE) 1 ML, CALCIUM GLUCONATE 1 GM, S... IV SCH ×8 (16:00)
[2021-03-21] MEDS: MORPHINE SULFATE (100 MG/2 ML) 100 MG in SODIUM CHLORIDE 0.9% 100 ML IV SCH (02:05)
--- NOTE | 2021-03-21 15:32 | P.PN ---
<Ankush Mccollum - Last Filed: 03/21/21 15:28> Subjective Progress Note Date: 03/21/21 Hospital course: Patient is a 70-year-old male with a past medical history of hypertension, hyp erlipidemia, and metastatic bladder cancer currently receiving chemotherapy who presented to the emergency department on 03/15/21 secondary to active bowl nausea, vomiting, and diarrhea status post receiving chemotherapy. Patient sent to the ER by [facility] for management of dehydration. Patient admitted under our services with consultation to hematology/oncology. Patient continued to have persistent abdominal pain and diarrhea. He was evaluated by nutrition services and was taken down for PICC line placement and scheduled to begin TPN to allow for bowel rest. However patient continued with persistent diarrhea and was found to have an elevated lactate of 3.2 and a 1 L bolus of 0.9% normal saline was given. Repeat lactate 4.2 and another liter of fluid was given followed by aggressive IV hydration with 0.9% normal saline at 130 mL's per hour and a KUB was completed partial/distal bowel obstruction with colitis of his left sigmoid colon. KUB resulted showing evidence of large and small bowel ileus not changed compared to previous exam with no evidence of free air. Overnight, lactate increased from 4.2 up to 11.5. Nighttime provider to bedside to assess patient and found patient to have increasing oxygen requirements and ordered for a stat CTA chest, abdomen and pelvis along with additional fluids. CTA showing bilateral pleural effusions with lower lobe pulmonary infiltrates and atelectasis which appeared to be new, multiple l low-density liver masses consistent with metastatic disease, multiple small cortical areas of decreased enhancement in both kidneys appears to be new compared to yesterday possibly secondary to multifocal ischemia, and subcutaneous edema around the abdomen is slightly increased compared to previous exam. Call was then placed to patient's guardian to discuss patient's worsening clinical condition in light of his metastatic malignancy and multiple comorbidities. It was decided by legal guardian, Kenny Mckeon, that he did not want patient to be transferred to ICU and requested patient to be placed on comfort care at this time with no further aggressive interventions. Physical exam: 03/20/21: Upon assessment this morning, patient nonverbal appeared comfortable. Patient did turn head and open eyes when spoken to. He did not appear to be in any distress. Comfort measures are in place and morphine drip infusing into be titrated per comfort scale. PRN Ativan available as needed for agitation or acute anxiety. Called and spoke with patient's legal guardian, Kenny Mckeon, at 9:10 AM regarding patient condition and recommended family/friends to be notified. Kenny requested patient to be kept comfortable and that all other medication and interventions be discontinued. Consult placed to hospice. 03/21/21: Patient seen and assessed the bedside this morning. He appeared to be resting comfortably. Patient no longer responding to verbal or tactile stimulation. Morphine infusing per comfort scale and currently at 5 mg per hour. Scopolamine patch in place. RN reports that she just spoke with Kenny, pt's guardian and updated him on pt's status. We will continue with comfort measures at this time. Vital signs reviewed and BP 91/57, heart rate 70, respiratory rate 14, and SpO2 of 97% on 5 L at this time.. Patient was hypothermic with temperature of 92.9F and a warm blanket was applied. General: Nontoxic, thin/frail chronically ill-appearing Derm: Skin warm and dry, pale. Head: Atraumatic, normocephalic and symmetric. Eyes: No lid lag, and anicteric sclera Mouth: no lip lesions, mucus membranes dry Cardiovascular: regular rate and rhythm with normal S1S2, no murmur, positive posterior tibial pulses bilaterally, and cap refill < 2 seconds. No mottling noted Lungs: Respirations even, regular, and unlabored on 5 L O2 via nasal cannula. Lungs CTA bilaterally, no rhonchi, no rales, no wheezing, and no accessory muscle usage. Abdominal: soft, patient showed no signs of tenderness upon light palpation at this time. Ext: No gross muscle atrophy, no edema, no contractures Neuro: Patient nonverbal with minimal response this morning. Appears to be resting comfortably. Assessment and Plan of Care: Chemo-induced diarrhea and vomiting Hypovolemic hyponatremia, improving Dehydration Metastatic bladder cancer with metastases to the liver and lungs on chemotherapy Chemo-induced pancytopenia Underlying cognitive impairment Lactic acidosis, likely secondary to dehydration secondary to persistent diarrhea Partial distal bowel obstruction with colitis involving left sigmoid colon Hypomagnesemia -Comfort measures only. -Consult to Hospice. -Continue morphine infusion to be titrated per comfort scale -PRN Ativan as needed for agitation or acute anxiety. -Scopolamine patch along with atropine drops as needed for excess secretions. CODE STATUS: COMFORT MEASURES ONLY....DO NOT RESUSCITATE/DO NOT INTUBATE. DVT prophylaxis: Mechanical/SCDs secondary to thrombocytopenia Discussed with: Patient and RN A total of 40 minutes was spent on the care of this complex patient more than 50% of the time was spent in counseling and care coordination. Objective - Vital Signs Vital signs: Vital Signs Temp 92.9 F L 03/20/21 08:03 Pulse 70 03/20/21 08:03 Resp 14 03/20/21 08:03 BP 91/57 03/20/21 08:03 Pulse Ox 98 03/20/21 01:30 Intake & Output 03/20/21 03/21/21 03/21/21 18:59 06:59 18:59 Intake Total 102 Balance 102 Weight 45.359 kg Intake: Intake, IV Titration 102 Amount Morphine Sulfate (100 mg/ 102 2 ml) 100 mg In Sodium Chloride 0.9% 100 ml @ 1 MG/HR 1.02 mls/hr IV . Q24H [facility] Rx#:[id number] Other: Voiding Method Diaper # Voids 2 - Labs CBC & Chem 7: 03/20/21 01:00 03/20/21 01:00 Labs: Microbiology - Last 24 Hours (Table) 03/15/21 15:15 Stool Culture - Final Stool <Dariela Roman - Last Filed: 03/21/21 18:46> Subjective Patient seen and examined independently. Patient was also seen by Ankush Mccollum NP and case was discussed. I am in agreement with subjective, physical exam, assessment and plan as written above and amended below. Resting peacefully. General: non toxic, no distress, appears at stated age Derm: warm, dry Mouth: no lip lesion, mucus membranes dry Cardiovascular: S1S2 reg, no murmur, positive posterior tibial pulse bilateral, Lungs: Decreased breath sounds bilaterally, respirations are slightly labored with some drooling. Neuro: No tremor Psych: Sleeping does not relate to touch Objective - Vital Signs Vital signs: Vital Signs Temp 92.9 F L 03/20/21 08:03 Pulse 70 03/20/21 08:03 Resp 14 03/20/21 08:03 BP 91/57 03/20/21 08:03 Pulse Ox 98 03/20/21 01:30 Intake & Output 0903/21/21 03/21/21 18:59 06:59 18:59 Intake Total 102 0 Balance 102 0 Weight 45.359 kg Intake: Intake, IV Titration 102 Amount Morphine Sulfate (100 mg/ 102 2 ml) 100 mg In Sodium Chloride 0.9% 100 ml @ 1 MG/HR 1.02 mls/hr IV . Q24H [facility] Rx#:[id number] Oral 0 Other: Voiding Method Diaper Diaper # Voids 2 2 - Labs CBC & Chem 7: 03/20/21 01:00 03/20/21 01:00
--- NOTE | 2021-03-22 07:58 | P.DS ---
<Ankush Mccollum - Last Filed: 03/22/21 07:45> Providers Expected date of discharge: 03/21/21 Hospital Course: Discharge Summary Patient 03/21/21 at 6:30 PM: Chemo-induced diarrhea and vomiting Hypovolemic hyponatremia, improving Dehydration Metastatic bladder cancer with metastases to the liver and lungs on chemotherapy Chemo-induced pancytopenia Underlying cognitive impairment Severe Lactic acidosis, likely secondary to dehydration secondary to persistent diarrhea Partial distal bowel obstruction with colitis involving left sigmoid colon Hypomagnesemia Hospital Course: Patient is a 70-year-old male with a past medical history of hypertension, hyperlipidemia, and metastatic bladder cancer currently receiving chemotherapy who presented to the emergency department on 03/15/21 secondary to active bowl nausea, vomiting, and diarrhea status post receiving chemotherapy. Patient sent to the ER by [facility] for management of dehydration. Patient admitted under our services with consultation to hematology/oncology. Patient continued to have persistent abdominal pain and diarrhea. He was evaluated by nutrition services and was taken down for PICC line placement and scheduled to begin TPN to allow for bowel rest. However patient continued with persistent diarrhea and was found to have an elevated lactate of 3.2 and a 1 L bolus of 0.9% normal saline was given. Repeat lactate 4.2 and another liter of fluid was given followed by aggressive IV hydration with 0.9% normal saline at 130 mL's per hour and a KUB was completed partial/distal bowel obstruction with colitis of his left sigmoid colon. KUB resulted showing evidence of large and small bowel ileus not changed compared to previous exam with no evidence of free air. Overnight, lactate increased from 4.2 up to 11.5. Nighttime provider went to bedside to assess patient and found patient to have increasing oxygen requirements and ordered for a stat CTA chest, abdomen and pelvis along with additional fluids. CTA showing bilateral pleural effusions with lower lobe pulmonary infiltrates and atelectasis which appeared to be new, multiple l low- density liver masses consistent with metastatic disease, multiple small cortical areas of decreased enhancement in both kidneys appears to be new compared to prior testing possibly secondary to multifocal ischemia, and subcutaneous edema around the abdomen is slightly increased compared to previous exam. Call was then placed to patient's guardian to discuss patient's worsening clinical condition in light of his metastatic malignancy and multiple comorbidities. It was decided by legal guardian, Kenny Mckeon, that he did not want patient to be transferred to ICU and requested patient to be placed on comfort care at thar time with no further aggressive interventions. Comfort care initiated on 03/19/21 and was maintained until patient's time of which occurred on 03/21/21 at 6:30 PM. A total of 15 minutes of time were spent preparing this complex discharge summary. Plan - Discharge Summary Discharge Rx Participant: No New Discharge Prescriptions: No Action amLODIPine [Norvasc] 10 mg PO DAILY Ondansetron HCl [Zofran] 4 mg PO Q6H PRN PRN Reason: Nausea And Vomiting Megestrol [Megace] 800 mg PO DAILY Diphenox-Atrop 2.5-0.025 mg [Lomotil] 2 tab PO QID Pantoprazole [Protonix] 40 mg PO DAILY Atorvastatin [Lipitor] 80 mg PO DAILY Ferrous Sulfate [Iron] 325 mg PO DAILY Nzeju-D-Dqvdycsadvrwt [Beano] 150 unit PO TID PRN PRN Reason: gas Aspirin EC [Ecotrin Low Dose] 81 mg PO DAILY Discharge Medication List amLODIPine [Norvasc] 10 mg PO DAILY 04/04/20 [History] Atorvastatin [Lipitor] 80 mg PO DAILY 02/01/21 [History] Ferrous Sulfate [Iron] 325 mg PO DAILY 02/01/21 [History] Pantoprazole [Protonix] 40 mg PO DAILY 02/01/21 [History] Ccrct-A-Fvlkzhillcqyk [Beano] 150 unit PO TID PRN 03/15/21 [History] Aspirin EC [Ecotrin Low Dose] 81 mg PO DAILY 03/15/21 [History] Diphenox-Atrop 2.5-0.025 mg [Lomotil] 2 tab PO QID 03/15/21 [History] Megestrol [Megace] 800 mg PO DAILY 03/15/21 [History] Ondansetron HCl [Zofran] 4 mg PO Q6H PRN 03/15/21 [History] Follow up Appointment(s)/Referral(s): Annamarie Elder ANPBC [Nurse Practitioner] - 03/21/21 10:00 am None,Stated [Primary Care Provider] - 1-2 days Discharge Disposition: - Preliminary Cause of Preliminary Cause of : cancer <Dariela Roman - Last Filed: 03/22/21 16:42> Providers Date of admission: 03/15/21 13:08 Attending physician: Caprice Brownlee Consults: 03/15/21 13:10 Consult Physician Urgent Consulting Provider: Curly Godoy Consult Reason/Comments: Bladder cancer with metastasis, chemotherapy, pancytopenia Do you want consulting provider notified?: Yes Primary care physician: Stated None Hospital Course: Patient seen and examined independently. Patient was also seen by Ankush Mccollum NP and case was discussed. I am in agreement with discharge diagnosis, hospital course, and physical exam as written above and amended below. See progress note same date.
--- NOTE | 2021-03-22 21:17 | CDI ---
Documentation Clarification Form Date: 03/22/2021 09:15:05 PM From: Ashley Martinez RN, CCDS Admit Date: 03/15/2021 01:08:00 PM Patient Name: Antwon Razo Visit Number: [id number] Discharge Date: 03/21/2021 09:01:00 PM ATTENTION: The Clinical Documentation Specialists (CDI) and [facility] Coding Staff appreciate your assistance in clarifying documentation. Please respond to the clarification below the line at the bottom and electronically sign. The CDI & [facility] Coding staff will review the response and follow-up if needed. Please note: Queries are made part of the Legal Health Record. If you have any questions, please contact the author of this message via ITS. Dr. Dariela Roman The Registered Dietitian assessment on 03/16/2021 indicates this patient meets criteria for an additional nutritional diagnosis. Based on this information and the findings below, is there an additional diagnosis that is clinically appropriate for this patient? History/Risk Factors: Anorexia, weight loss, bladder CA with Mets to Liver and Lungs Clinical Indicators: 03/19-03/21 attending Progress notes: "Ill appearing male, in mild respiratory distress, appears stated age, frail." RD Consult Assessment: "underweight" Current BMI: 18.9 Insufficient energy intake: chemo induced diarrhea and vomiting, maintained NPO status Weight Loss: Prior to this admission Loss of muscle mass: No gross muscle atrophy, no edema, no contractures. Decreased hand seo intern strength: generalized weakness Treatment: Dietary Consult: completed 03/16/2021 Supplements: Ensure Enlive TID PPN/TPN: 03/19 Recs made when PICC Line placed Lab monitoring: AM Daily Is there an additional diagnosis that is clinically appropriate for this patient? [ ] Mild Protein-Calorie Malnutrition [ ] Moderate Protein-Calorie Malnutrition [ ] Severe Protein-Calorie Malnutrition [ ] Other condition, please specify [ ] Unable to Determine (Template Last Revised: September 2020) Severe Protein-Calorie Malnutrition MTDD
--- NOTE | 2021-03-22 21:28 | CDI ---
Documentation Clarification Form Date: 03/22/2021 09:18:23 PM From: Ashley Martinez RN, CCDS Admit Date: 03/15/2021 01:08:00 PM Patient Name: Antwon Razo Visit Number: [id number] Discharge Date: 03/21/2021 09:01:00 PM ATTENTION: The Clinical Documentation Specialists (CDI) and [facility] Coding Staff appreciate your assistance in clarifying documentation. Please respond to the clarification below the line at the bottom and electronically sign. The CDI & [facility] Coding staff will review the response and follow-up if needed. Please note: Queries are made part of the Legal Health Record. If you have any questions, please contact the author of this message via ITS. Dr. Dariela Roman Your patient had a compromised respiratory status with increasing O2 needs 03/19. Based on this information and the findings below, is there an additional diagnosis that is clinically appropriate for this patient? History/Risk Factors: Tobacco use: Former Smoker Home oxygen: none Bladder CA with Mets to Liver and Lungs, Chemo induced Pancytopenia, Dehydration, N/V/D, HTN Clinical Indicators: 03/19 Attending Progress Note: "Ill appearing male, in mild respiratory distress, appears stated age, frail. He was noted to have gradually worsening hypoxia, initially SpO2 90% on 3L but gradually increasing requirements." 03/19 1455 Vital signs: Temp 97.4, HR 109, RR 28, B/P 119/81, Spo2 88% RA Pulse oximetry: Per nursing unit protocol 03/19 Attending Lung/Breathing assessment: "Lungs: Some scattered rhonchi bilaterally with no wheezing or rales appreciated, mildly increased respiratory effort." Treatment: Breathing TX: none ordered Pulse ox: monitored per unit protocol O2: RA to 3L, to partial NRB, to 100% NRB, back down to 5L (for comfort care) Is there an additional diagnosis that is clinically appropriate for this patient? [ ] Acute Hypoxic Respiratory Failure (pO2 <60 mm Hg or SpO2 <91% on room air) [ ] Acute Hypercapnic Respiratory Failure (pCO2 >50 and pH <7.35) [ ] Other Diagnosis, please specify [ ] Unable to determine (Template Last Revised: September 2020) Acute Hypoxic Respiratory Failure (pO2 <60 mm Hg or SpO2 <91% on room air) [facility]
== END 2021-03-21 21:01 | disposition expired | DRG 393 ==
LOC: EC 10:08 → 5NMEDONC 13:08
PROVIDERS: ADMIT Internal Medicine; ATTEND Internal Medicine
PROC: 3E0436Z Introduction of Nutritional Substance into Central Vein, Percutaneous Approach (ICD-10-PCS; 2021-03-19)
PROC: 02HV33Z Insertion of Infusion Device into Superior Vena Cava, Percutaneous Approach (ICD-10-PCS; principal; 2021-03-19 10:55)
DX: K52.1 Toxic gastroenteritis and colitis (principal); D61.810 Antineoplastic chemotherapy induced pancytopenia; J96.01 Acute respiratory failure with hypoxia; E43 Unspecified severe protein-calorie malnutrition; K56.600 Partial intestinal obstruction, unspecified as to cause; E87.2 Acidosis; E87.1 Hypo-osmolality and hyponatremia; J90 Pleural effusion, not elsewhere classified; C78.7 Secondary malignant neoplasm of liver and intrahepatic bile duct; C78.00 Secondary malignant neoplasm of unspecified lung; J98.11 Atelectasis; Z68.1 Body mass index [BMI] 19.9 or less, adult; C67.9 Malignant neoplasm of bladder, unspecified; E86.0 Dehydration; R54 Age-related physical debility; Z66 Do not resuscitate; Z51.5 Encounter for palliative care; T45.1X5A Adverse effect of antineoplastic and immunosuppressive drugs, initial encounter; E78.5 Hyperlipidemia, unspecified; E83.42 Hypomagnesemia; E86.1 Hypovolemia; J45.909 Unspecified asthma, uncomplicated; I25.2 Old myocardial infarction; I10 Essential (primary) hypertension; Q86.0 Fetal alcohol syndrome (dysmorphic); R41.89 Other symptoms and signs involving cognitive functions and awareness; R32 Unspecified urinary incontinence; Z79.82 Long term (current) use of aspirin; Z79.818 Long term (current) use of other agents affecting estrogen receptors and estrogen levels; Z79.899 Other long term (current) drug therapy; Z87.891 Personal history of nicotine dependence; Z95.1 Presence of aortocoronary bypass graft; Z71.3 Dietary counseling and surveillance; Z88.0 Allergy status to penicillin; Z81.1 Family history of alcohol abuse and dependence; Z82.49 Family history of ischemic heart disease and other diseases of the circulatory system
CPT/HCPCS: 36415; 36573; 71260; 74018; 74022; 74177; 80048; 80053; 81001; 82150; 83605; 83630; 83690; 83735; 83930; 83935; 84132; 84484; 85025; 87045; 87046; 93005; 94760; 96360; 96361; 96367; 96375; 96417; 99285